=== PATIENT | male | born 2000 | race Caucasian/White ===

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

== ENCOUNTER 2024-02-20 04:12 | Emergency (ER) | payer OTHER, SELFPAY ==
--- NOTE | ~2024-02-20 | CT_ITS ---
EXAMINATION: CT abdomen pelvis w con DATE: 02/20/2024 12:39 INDICATION: Periumbilical abdominal pain TECHNIQUE: Computed tomography (CT) of the abdomen and pelvis was performed with 100 mL Omnipaque-350 intravenous contrast. Automated exposure control and iterative reconstruction technique were employe d. The dose-length product was 304.52 mGy-cm. COMPARISON: 09/22/2019 FINDINGS: Lung bases are clear. Heart size is normal. No pericardial or pleural effusion. Liver, gallbladder, s pleen, pancreas, bilateral adrenal glands and kidneys are normal. Bowels are unremarkable. Bladder is normal. Anteverted uterus and bilateral adnexa are unremarkable. No free intraperitoneal gas or flui d. No pathologically enlarged abdominal or pelvic lymphadenopathy. Mild lumbar spondylosis. IMPRESSION: 1. No acute intra-abdominal/pelvic process. Reviewed, dictated and finalized at location A. [facility] [employer]
--- NOTE | 2024-02-20 10:28 | PC.NURSE ---
pt made aware that we need a urine specimen. pt unable to provide one at this time. pt declining straight cath. call light within reach and pt to advice to press call light when she feels she can use the restroom.
[2024-02-20 10:29] VITALS: BP 106/74; PULSE 80; RESP 16; TEMP 36.6; O2SAT 100
[2024-02-20 10:29] LABS: Basophils Absolute Auto 0.1 K/mm3 (0.0-0.1); Basophils Percent Auto 1.2 % (0.2-1.2); Eosinophils Absolute Auto 0.3 K/mm3 (0-0.3); Eosinophils Percent Auto 3.3 % (0-4.4); Hematocrit 42.2 % (37.0-47.0); Hemoglobin 14.2 g/dL (12.0-15.0); Immature Granulocyte Absolute 0.04 K/mm3 (0.00-0.031); Immature Granulocyte Percent A 0.4 % (0-0.5); Lymphocytes Absolute Auto 2.32 K/mm3 (0.9-3.2); Lymphocytes Percent Auto 22.7 % (18.3-44.2); Mean Corpuscular HGB Conc 33.6 g/dl (32-36); Mean Platelet Volume 9.4 fl (7.4-10.4); Monocytes Absolute Auto 0.5 K/mm3 (0.1-0.6); Monocytes Percent Auto 5.1 % (2.6-8.5); Neutrophils Absolute Auto 6.9 K/mm3 (1.3-6.7); Neutrophils Percent Auto 67.3 % (45.5-73.1); Platelet Count Result 364 k/mm3 (150-375); Red Blood Count 4.44 M/mm3 (4.2-5.4); Red Cell Distribution Width 11.6 % (11.5-14.5); White Blood Count 10.2 K/mm3 (4.5-10.0)
[2024-02-20 10:39] LABS: Alanine Aminotransferase 14 U/L (6-35); Albumin Level 4.6 g/dL (3.5-5.1); Alkaline Phosphatase 57 U/L (38-126); Anion Gap 5 mmol/L (4-12); Aspartate Amino Transferase 21 U/L (14-36); Bilirubin,Total 0.5 mg/dL (0.2-1.3); Blood Urea Nitrogen 11 mg/dL (7-17); Calcium 9.7 mg/dL (8.4-10.2); Carbon Dioxide 29 mmol/L (22-30); Chloride 103 mmol/L (98-107); Estimated Glomerular Filt Rate > 60; Glucose 86 mg/dL (65-110); Lipase 45 U/L (23-300); Potassium 4.3 mmol/L (3.4-5.0); Sodium 137 mmol/L (137-145)
--- NOTE | 2024-02-20 10:57 | ED.ABDPAIN ---
HPI - Abdominal Pain General Chief Complaint: Abdominal Pain Stated Complaint: abd pain Time Seen by Provider: 02/20/24 10:17 Source: patient Mode of arrival: ambulatory Limitations: no limitations History of Present Illness HPI narrative: This is a 23 year old female that presents to the ER for mid abdominal pain. Ongoing since earlier this morning. Denies fevers, vomiting, diarrhea. dysuria. Related Data Home Medications ?Medication ?Instructions ?Recorded ?Confirmed ?Last Taken ?Type albuterol sulfate 90 mcg/actuation 1 puff inhalation QID 09/22/19 Unknown History aerosol inhaler clonidine HCl 0.1 mg tablet 0.1 mg PO ONCE 09/22/19 Unknown History divalproex 500 mg tablet,extended 1,000 mg PO DAILY 09/22/19 Unknown History release 24 hr (Depakote ER) etonogestrel 68 mg subdermal subdermal 09/22/19 Unknown History implant (Nexplanon) fluoxetine 20 mg capsule (Prozac) 20 mg PO DAILY 09/22/19 Unknown History hydroxyzine pamoate 25 mg capsule 25 mg PO TID PRN Anxiety 09/22/19 Unknown History levocetirizine 5 mg tablet (Xyzal) 5 mg PO DAILY 09/22/19 Unknown History omeprazole 20 mg tablet,delayed PO BID 09/22/19 Unknown History release propranolol 40 mg tablet 40 mg PO DAILY 09/22/19 Unknown History testosterone cypionate 200 mg/mL IM WEEKLY 09/22/19 Unknown History intramuscular kit (Testone CIK) trazodone 50 mg tablet 50 mg PO HS 09/22/19 Unknown History Allergies Allergy/AdvReac Type Severity Reaction Status Date / Time cefdinir (From Omnicef) Allergy Rash Verified 09/22/19 13:13 clindamycin Allergy Anaphylactic Verified 09/22/19 13:13 Shock nickel Allergy Rash Verified 09/22/19 13:13 Review of Systems Review of Systems: CONSTITUTIONAL: Denies fever GASTROINTESTINAL: Reports abdominal pain. Denies nausea, vomiting, or diarrhea. GENITOURINARY: Denies dysuria or hematuria. All systems reviewed & are unremarkable except as noted in HPI and below PMFSH Past Medical History Medical History (Updated 02/20/24 @ 13:52 by Mitzy Lozano PA-C) History of fibromyalgia Social History Social History (Updated 09/22/19 @ 15:32 by Julius Mendez, BRADY) Smoking status: Never smoker Exam Narrative: GENERAL: Well-appearing, well-nourished, and in no acute distress. HEAD: Normocephalic, atraumatic. EYES: EOMI. CHEST: Clear to auscultation. No respiratory distress. No wheezes rales or rhonchi HEART: Regular rate and rhythm. No murmur heard. Normal peripheral pulses. ABDOMEN: Soft, nondistended, normal active bowel sounds. Tender to palpation throughout the abdomen, without guarding EXTREMITIES: Normal range of motion. No edema. SKIN: Warm, dry, no rash. NEURO: No focal deficits. Alert and oriented x3. PSYCH: Normal mood and affect Course Course Emergency Course: Patient family updated on workup and agree with plan of care. Reports this has been an ongoing issue with her having abdominal pain. Will refer to GI Vital Signs Vital signs: Vital Signs Temperature 98 F 02/20/24 10:29 Pulse Rate 80 02/20/24 10:29 Respiratory Rate 16 02/20/24 10:29 Blood Pressure 106/74 02/20/24 10:29 Pulse Oximetry 100 02/20/24 10:29 Temperature 97.6 F 02/20/24 13:12 Pulse Rate 80 02/20/24 13:12 Respiratory Rate 17 02/20/24 13:12 Blood Pressure 115/75 02/20/24 13:12 Pulse Oximetry 99 02/20/24 13:12 MDM - Abdominal Pain MDM Narrative Medical decision making narrative: Patient presents to the emergency department for abdominal pain ongoing this morning. She is afebrile and nontoxic appearing. Vitals are stable. CBC with mild leukocytosis to 10.2. Hemoglobin is normal. Metabolic panel without concerning findings. Urine without evidence of infection. CT abdomen pelvis without acute findings. Patient family updated on workup and agree with plan of care. Reports this has been an ongoing issue with her having abdominal pain. Will refer to GI. They were given warnings to return to the ER Differential Diagnosis Differential diagnosis: Likely abdominal pain, acute appendicitis, calculus of kidney, constipation, diverticulitis and endometriosis Lab Data Attestation: I reviewed the patient's lab results. 02/20/24 10:23 02/20/24 10:23 Labs: Lab Results 12/10/24 12/10/24 12/10/24 Range/Units 10:23 12:20 12:21 WBC 10.2 H (4.5-10.0) K/mm3 RBC 4.44 (4.2-5.4) M/mm3 Hgb 14.2 (12.0-15.0) g/dL Hct 42.2 (37.0-47.0) % MCV 95.0 (80-100) fl MCH 32.0 (26-34) pg MCHC 33.6 (32-36) g/dl RDW 11.6 (11.5-14.5) % Plt Count 364 (150-375) k/mm3 MPV 9.4 (7.4-10.4) fl Immature Gran % (Auto) 0.4 (0-0.5) % Neut % (Auto) 67.3 (45.5-73.1) % Lymph % (Auto) 22.7 (18.3-44.2) % [place] % (Auto) 5.1 (2.6-8.5) % Eos % (Auto) 3.3 (0-4.4) % Baso % (Auto) 1.2 (0.2-1.2) % Lymph # (Auto) 2.32 (0.9-3.2) K/mm3 [place] # (Auto) 0.5 (0.1-0.6) K/mm3 Eos # (Auto) 0.3 (0-0.3) K/mm3 Baso # (Auto) 0.1 (0.0-0.1) K/mm3 Abs Immat Gran (auto) 0.04 H (0.00-0.031) K/mm3 Absolute Neuts (auto) 6.9 H (1.3-6.7) K/mm3 Absolute Nucleated RBC 0.000 (0.0-0.012) K/mm3 Nucleated RBC % 0.0 (0.0-0.2) % Sodium 137 (137-145) mmol/L Potassium 4.3 (3.4-5.0) mmol/L Chloride 103 (98-107) mmol/L Carbon Dioxide 29 (22-30) mmol/L Anion Gap 5 (4-12) mmol/L BUN 11 (7-17) mg/dL Creatinine 0.60 L (0.7-1.0) mg/dL Estim Creat Clear Calc Not Reportable Estimated GFR > 60 (59 - ) Glucose 86 (65-110) mg/dL Calcium 9.7 (8.4-10.2) mg/dL Total Bilirubin 0.5 (0.2-1.3) mg/dL AST 21 (14-36) U/L ALT 14 (6-35) U/L Alkaline Phosphatase 57 (38-126) U/L Total Protein 8.0 (6.3-8.2) g/dL Albumin 4.6 (3.5-5.1) g/dL Lipase 45 (23-300) U/L Urine Color Yellow (Yellow) Urine Appearance Clear (Clear) Urine pH 7.0 (5.0-9.0) Ur Specific [place] 1.018 (1.001-1.035) Urine Protein Negative (Negative) mg/dL Urine Glucose (UA) Negative (Negative) mg/dL Urine Ketones Trace H (Negative) mg/dL Ur Blood (Man) Negative (Negative) Urine Nitrate Negative (Negative) Urine Bilirubin Negative (Negative) Urine Urobilinogen 0.2 (<2.0) mg/dL Leukocyte Esterase Rfl Negative (Negative) LUI/UL POC Urine HCG, Qual Negative (Negative) Imaging Data Radiologist's impression: ITS Impressions Abdomen/Pelvis CT 02/20/24 12:49 IMPRESSION: 1. No acute intra-abdominal/pelvic process. Critical Care Time Critical Care Time Critical Care Time: No Discharge Plan Discharge Clinical Impression: Abdominal pain Qualifiers: Abdominal location: periumbilical Qualified Code(s): R10.33 - Periumbilical pain Patient Disposition: Home, Self-Care Condition: Stable Instructions: Abdominal Pain (ED) Additional Instructions: Return to the ER if you experience fever, worsening abdominal pain with nausea and vomiting, you are unable to keep down liquids or solids, blood in the stool, pain or burning with urination, blood in the urine or any other symptoms that are concerning to you Small, frequent meals. [place] diet. Remain well hydrated. Ondansetron as needed for nausea Follow up with gastroenterology Patient Language: Nepali Prescriptions: New ondansetron 4 mg tablet,disintegrating 4 mg PO Q8H PRN (Reason: nausea and vomiting) Qty: 10 0RF No Action divalproex [Depakote ER] 500 mg Tablet Extended Release 24 Hr 1,000 mg PO DAILY clonidine HCl 0.1 mg Tablet 0.1 mg PO ONCE fluoxetine [Prozac] 20 mg Capsule 20 mg PO DAILY levocetirizine [Xyzal] 5 mg Tablet 5 mg PO DAILY omeprazole 20 mg Tablet,Delayed Release (Dr/Ec) PO BID trazodone 50 mg Tablet 50 mg PO HS propranolol 40 mg Tablet 40 mg PO DAILY albuterol sulfate 90 mcg/actuation Hfa Aerosol Inhaler 1 puff INHALATION QID hydroxyzine pamoate 25 mg Capsule 25 mg PO TID PRN (Reason: Anxiety) Nexplanon 68 mg Implant SUBDERMAL Testone CIK 200 mg/mL Kit IM WEEKLY cyclobenzaprine 10 mg tablet 10 mg PO TID PRN (Reason: muscle spasm) Qty: 7 0RF Follow-up/Referrals: [place],Aniya Carreno APN [Primary Care Provider] -
[2024-02-20] MEDS: SODIUM CHLORIDE 0.9% IV 1,000 ML 999 ML IV CONT ×2 (11:02→12:59)
[2024-02-20] MEDS: ONDANSETRON INJ 4 MG/2 ML VIAL IV PUSH (11:03)
[2024-02-20] MEDS: MORPHINE SULFATE (*CRX) 4 MG/ML INJ IV PUSH (11:03)
[2024-02-20 11:07] VITALS: BP 107/78; PULSE 82; RESP 14; TEMP 36.9; O2SAT 100
[2024-02-20 12:26] LABS: BEDSIDEPREGUCG Negative (Negative)
[2024-02-20 12:26] LABS: Add Urine Microscopic? NO; Appearance Urine Clear (Clear); Bilirubin Urine Negative (Negative); Blood Urine Negative (Negative); Color Urine Yellow (Yellow); Glucose Urine UA Negative (Negative); Ketones Urine Trace mg/dL (Negative); Leukocyte Esterase Ur Negative LEU/UL (Negative); Nitrate Urine Negative (Negative); Protein Urine Negative (Negative); Specific Grav Ur 1.018 (1.001-1.035); Urobilinogen Urine 0.2 mg/dL (<2.0)
[2024-02-20 13:12] VITALS: BP 115/75; PULSE 80; RESP 17; TEMP 36.4; O2SAT 99
== END 2024-02-20 13:58 | disposition home or self-care (01) ==
PROVIDERS: Emergency Medicine; Emergency Provider Physician Assistant; PCP Nurse Practitioner Family
DX: R10.33 Periumbilical pain (principal)
CPT/HCPCS: 36415; 74177; 80053; 81003; 81025; 83690; 85025; 96361; 96374; 96375; 99284; J2270; J2405; J7030; Q9967

== ENCOUNTER 2024-08-16 16:43 | Emergency (ER) | payer OTHER, SELFPAY ==
--- NOTE | ~2024-08-16 | XR_ITS ---
EXAMINATION: XR chest 1V portable Exam Date/Time: 08/16/2024 20:53 CDT HISTORY: reported fever Comparison: CT cap 09/22/2019. RESULT: Lines, tubes, and devices: None. Lungs and pleura: Clear. Cardiomediastinal silhouette: Stable. Other: No acute osseous or upper abdominal finding. IMPRESSION: No acute cardiopulmonary process. Reviewed, dictated and finalized at location K.
--- NOTE | ~2024-08-16 | CT_ITS ---
EXAMINATION: CT abdomen pelvis w con DATE: 08/16/2024 19:36 INDICATION: LUQ and LLQ abdominal pain TECHNIQUE: Computed tomography (CT) of the abdomen and pelvis was performed with 100 mL Omnipaque-350 intravenous contrast. Automated exposure control and iterative reconstruction technique were employe d. The dose-length product was 556.01 mGy-cm. COMPARISON: 02/20/2024. FINDINGS: Lower thorax: Unremarkable Liver: Normal. Biliary/Gallbladder: Gallbladder is normal. No bile duct dilation. Pancreas: No mass or duct dilation. Spleen: Normal. Adrenals:No mass. Kidneys: No suspicious mass, obstructing stone, or hydronephrosis. GI tract: Mild distal esophageal and gastric wall edema. No small or large bowel dilation. Normal eron endix. Mesentery/Peritoneum: No ascites, mass, or free air. Retroperitoneum: No mass. Pelvis: Nearly empty urinary bladder. Normal uterus and bilateral ovaries. Soft Tissues: Soft tissues and body wall unremarkable. Bones: No acute osseous finding. IMPRESSION: Mild esophagitis and gastritis. Reviewed, dictated and finalized at location K.
--- OUTSIDE RECORDS SUMMARY | 2024-08-16 16:46 | XMS_ITS | Encounter Summary ---
Author Organization Formerly [facility] Address [address] [place] [address] Care Team Providers Care Cloth Bale Header Name Role Phone MadisonAniya Kim VILLAVICENCIO Primary Care Provider [phone] Reason for Visit * Reason Comments PT Treatment * Consultation (Routine) - Authorized Specialty Diagnoses / Procedures Referred By Galo sandy Referred To Contact Physical Therapy Diagnoses Dysmenorrhea, unspecified Kassie Camarena MD [address] [place] [id number] Phone: tel: fax: [facility] [place] [address] Phone: tel: fax: Referral ID Status Reason Start Date Expiration Date Visits Requested Visits Authorized [id number] Authorized Evaluate and Treat 06/10/2024 06/10/2025 6 11 Encounter Details Date Type Department Care Team (Late st Contact Info) Description 08/15/2024 11:15 AM CDT Therapy [facility] [place] [address] Carole Hughes, PT Pelvic and perineal pain (Primary Dx); Dysmenorrhea, unspecified Social History Tobacco Use Types Packs/Day Years Used Date Smoking Tobacco: Former Cigarettes Comments Unknown Sex and Gender Information Value Date Recorded Sex Assigned at Not on file Legal Sex Female 12:50 PM CDT Gender Identity Non-Binary 04/27/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 Pelvic and perineal pain R10.2 2. 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 They have been learning how to give massages with their wheelchair to allow them to maintain energy conservation. They feel very nauseous right now. They have not been able to eat much food in the past few weeks due to food aversions. Their pain is getting a little better and fatigue is a bit better, but the nausea is not letting up. Pelvic pain is better, and they are starting to see progress with dilation. There is still initial searing pain, but but the deeper areas areless painful. Pelvic pain is currently 5/10, whole body is 6/10. Objective: See treatment provided Pt provided verbal consent to pelvic floor assessment 07/25/24. At rest, they demonstrate perineal elevation at rest with minimal range of motion with contraction and lengthening. Reports pain with lengthening. Internally, they have increased pain and tension throughout L side of pelvic floor, and increased tension but less report of pain on R. Second layer continues to be tense and painful. With changing LE position to main-cross legs, pelvic floor tension and pain level becomes significantly less tense and tender. Symptoms still more prominent L>R, but able to palpate deep pelvic floor without significant pain levels. Able to perform kenya's massage without pain >1/10. Abdominal fascia: increased restrictions noted suprapubic, LLQ, and RLQ Function Breathing: good rib expansion Treatment Provided: Education re: pelvic floor anatomy and function Education re: pelvic floor assessment & what to expect Education re: core and effect on pelvic floor Education re: intraabdominal pressure management Education re: urge suppression techniques - h/o provided 06/19/24 Education re: toileting postures & habits - squatty potty; open glottis breathing Education re: bladder retraining - bladder log provided 06/19/24 pt in supine with wedge to address nausea Reviewed urge suppression techniques & bladder log Pelvic floor MFR - sustained pressure and kenya's massage when in main cross position Abdominal MFR - tender to palpation at suprapubic, LLQ, RLQ that refers to navel, suprapubic* Discussed wand & dilator use Vagal nerve stimulation (ears, SCM) IFC & MHP during treatment Diaphragm breathing* Keila pose* Happy baby* Deep yoga squat* HEP: Access Code: [email or web address] - Child's Pose Stretch - 1 x daily - 7 x weekly - Supine Pelvic Floor Stretch - Hands on Knees - 1 x daily - 7 x weekly - Supine Piriformis Stretch with Leg Straight - 1 x daily - 7 x weekly - Yoga Squat for Pelvic Floor Relaxation - 1 x daily - 7 x weekly Bowel management handout Assessment: Added IFC & MHP to abdomen for comfort and pain management while performing manual techniques today. Tension of pelvic floor L>R with report of tenderness but improvements with Kenya's massage and sustained pressure. Goals STG 1:: Pt will utilize urge suppression techniques to manage urinary urgency and incontinence. goal progressing LTG 1:: Pt will report Marinoff score 0/3. goal not assessed LTG 2:: Pt will have daily bowel movement, type 3-4, with pain no greater than 2/10. goal progressing LTG 3:: Pt will void every 2-4 hours without urgency and completely emptying without pushing to empty. goal progressing LTG 4:: Pt will report worst pelvic pain 4/10 during menstruation. goal unchanged LTG 5:: Pt will tolerate medical pelvic examination with pain level 2/10 or less. goal progressing Plan: Continue with current POC Time in: 1115 Time out: 1200 Carole Hughes PT, DPT, COMT documented in this encounter Plan of Treatment Not on file documented as of this encounter Visit Diagnoses Diagnosis Pelvic and perineal pain- Primary Dysmenorrhea, unspecified documented in this encounter Care Teams Cloth Bale Header Relationship Specialty Start Date End Date Madison, Aniya Alvarez NP [address] [place] [address] PCP - General Nurse Practitioner 09/27/21 documented as of this encounter
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
--- OUTSIDE RECORDS SUMMARY | 2024-08-16 16:46 | XMS_ITS | Encounter Summary ---
Author Organization [facility] Healthcare Address [address] [place] [address] Care Team Providers Care Supervisor Epoxy Fabrication Name Role Phone Aniya Wallace NP Primary Care Provider Reason for Visit * Reason Comments Muscle Pain Patient here for c/o flare up of pain for the last few weeks, has had dizziness and nausea that started at the same time. Has not been able to keep meals down since this started. Encounter Details Date Type Department Care Team (Late st Contact Info) Description 08/16/2024 4:00 PM CDT Office Visit [facility] Medical Group Convenient Care at [address] [address] Tyrel Jarquin NP [address] [place] [address] [address] [place] [address] Abdominal pain (Primary Dx); Nausea; Left upper quadrant abdominal tenderness without rebound tenderness; Left lower quadrant abdominal tenderness without rebound tenderness Social History Tobacco Use Types Packs/Day Years Used Date Smoking Tobacco: Former Cigarettes Comments Unknown Sex and Gender Information Value Date Recorded Sex Assigned at Not on file Legal Sex Female 12:50 PM CDT Gender Identity Non-Binary 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 Sexual Orientation Bisexual 04/27/2022 7: 54 AM TRACK MOVING MACHINE OPERATOR documented as of this encounter Last Filed Vital Signs Vital Sign Reading Time Taken Comments Blood Pressure 133/84 08/16/2024 3:23 PM CDT Pulse 99 08/16/2024 3:23 PM CDT Temperature 36.9 C (98.4 F) 08/16/2024 3:23 PM CDT Respiratory Rate 21 08/16/2024 3:23 PM CDT Oxygen Saturation 97% 08/16/2024 3:23 PM CDT Inhaled Oxygen Concentration - - Weight - - Height - - Body Mass Index - - documented in this encounter Ordered Prescriptions Prescription Sig Dispense Quantity Refills Last Filled Start Date End Date ondansetron ODT (ZOFRAN-ODT) 4 mg disintegrating tabletIndications:Na usea Take 1 tablet (4 mg total) by mouth every 8 (eight) hours as needed for nausea or vomiting 10 tablet 08/16/2024 documented in this encounter Plan of Treatment Not on file documented as of this encounter Visit Diagnoses Diagnosis Abdominal pain- Primary Abdominal pain, unspecified site Nausea Nausea alone Left upper quadrant abdominal tenderness without rebound tenderness Left lower quadrant abdominal tenderness without rebound tenderness documented in this encounter Discontinued Medications Medication Sig Discontinue Reason Start Date End Da te naproxen-diphenhydramine 220-25 mg tablet Take by mouth 08/16/2024 documented as of this encounter Historical Medications * This list may reflect changes made after this encounter. Strattera 40 mg capsule TAKE 1 CAPSULE EVERY DAY BY ORAL ROUTE DIRECTED FOR 30 DAYS, FOR ADHD. Slynd tablet tablet Take 1 each (4 mg total) by mouth daily 08/01/2024 hydrOXYzine (ATARAX) 10 mg tablet Take 1 tablet (10 mg total) by mouth every 6 (six) hours as needed mirtazapine (REMERON) 7.5 mg tablet TAKE ONE TABLET BY MOUTH NEEDED AT BEDTIME FOR SLEEP DISTURBANCE sodium chloride 1,000 mg tablet Take 1 tablet (1 g total) by mouth 2 (two) times a day 06/27/2024 propranolol LA (INDERAL LA) 120 mg 24 hr capsule Take by mouth daily midodrine (PROAMATINE) 2.5 mg tablet 08/16/2024 added in this encounter Care Teams Supervisor Epoxy Fabrication Relationship Specialty Start Date End Date Aniya Wallace NP [address] [place] [address] PCP - General Nurse Practitioner 09/27/21 documented as of this encounter
--- OUTSIDE RECORDS SUMMARY | 2024-08-16 16:46 | XMS_ITS | Encounter Summary ---
Author Organization [facility] [employer] [facility] Care Team Providers Care Marketing Support Specialist Name Role Phone Aniya Wallace APRNMADDIE Primary Care Provider [phone] Encounter Details Date Type Department Care Team (Latest Contact Info) Description 08/15/2024 Travel Social History Tobacco Use Types Packs/Day Years Used Date Smoking Tobacco: Never Smokeless Tobacco: Never Alcohol Use Standard Drinks/Week Comments Not Currently [...] PM CDT documented as of this encounter Plan of Treatment Upcoming Encounters Date Type Department Care Team (Latest Contact Info) Description 10/02/2024 8:00 AM CDT Outpatient Clinic Visit [facility] [address] [place] [address] Juancho Rodriguez PSYD [place] Discharge Disposition: Discharged to home or Selfcare 10/23/2024 9:00 AM CDT Outpatient Clinic Visit [facility] [address] [place] [address] Juancho Rodriguez PSYD [place] Discharge Disposition: Discharged to home or Selfcare documented as of this encounter Goals Goal Patient Goal Type Associated Problems Recent Progress Patient-Stated? Author Psychological assessment Behavioral Health Juancho Green PSYD Note: Participate fully in a psychological assessment to determine presence of ADHD within the next 60 days. documented as of this encounter Visit Diagnoses Not on filedocumented in this encounter Care Teams Marketing Support Specialist Relationship Specialty Start Date End Date Aniya Wallace APRN, MADDIE [address] [place] [address] PCP - General Family Medicine 08/15/24 documented as of this encounter
--- OUTSIDE RECORDS SUMMARY | 2024-08-16 16:46 | XMS_ITS | Clinical Summary ---
Author Organization [facility] Address [facility] [place] [address] Care Team Providers Care Vest Busheler Name Role Phone Aniya Wallace PYTHON DEVELOPER Primary Care Provider [phone] Allergies Active Allergy Reactions Criticality Noted Date Comments Adhesive Rash,Other (See comments) Medium 11/09/2021 adhesive Cefdinir Other (See comments),Vomiting Low 11/24/2021 Severe acid reflux Clindamycin Unknown,Other (See comments) 11/09/2021 clindamycin Doxycycline Other (See comments) 08/16/2024 doxycycline Nickel Hives Medium 11/09/2021 Nystatin Rash,Other (See comments) Medium 11/09/2021 nystatin Medications acetaminophen-asp irin-caffeine (EXCEDRIN MIGRAINE) 250-250-65 mg per tablet Take 1 tablet by mouth every 6 (six) hours as needed Active cranberry ydmc-B-fpdefaky coag 250-30-50 vs-je-pfurhbz tablet Take by mouth Active magnesium carbonate (MAGONATE) liquid (54 mg of elemental magnesium/5 mL) Acti ve cholecalciferol (Vitamin D3) 2000 unit capsule Active ELDERBERRY FRUIT ORAL Active thymol/chlorophyl primo (CHLOROPHYLL ORAL) Active L. acidophilus/dig enz cmb 5 (PROBIOTIC-DIGEST RUBENS ENZYMES ORAL) Ac tive albuterol HFA (PROVENTIL HFA,VENTOLIN HFA,PROAIR HFA) 90 mcg/actuation inhaler INHALE 2 PUFFS BY MOUTH EVERY 6 HOURS 023 Active midodrine (PROAMATINE) 2.5 mg tablet 025 Active propranolol LA (INDERAL LA) 120 mg 24 hr capsule Take by mouth daily Active sodium chloride 1,000 mg tablet Take 1 tablet (1 g total) by mouth 2 (two) times a day 025 Active mirtazapine (REMERON) 7.5 mg tablet TAKE ONE TABLET BY MOUTH NEEDED AT BEDTIME FOR SLEEP DISTURBANCE Active hydrOXYzine (ATARAX) 10 mg tablet Take 1 tablet (10 mg total) by mouth every 6 (six) hours as needed Active Slynd tablet tablet Take 1 each (4 mg total) by mouth daily Active Strattera 40 mg capsule TAKE 1 CAPSULE EVERY DAY BY ORAL ROUTE DIRECTED FOR 30 DAYS, FOR ADHD. 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 Medical Group Convenient Care at [address] [address] Tyrel Jarquin NP Abdominal pain (Primary Dx); Nausea; Left upper quadrant abdominal tenderness without rebound tenderness; Left lower quadrant abdominal tenderness without rebound tenderness 08/15/2024 11:15 AM CDT Therapy [facility] [place] [address] Carole Hughes, PT Pelvic and perineal pain (Primary Dx); Dysmenorrhea, unspecified 08/01/2024 10:30 AM CDT Therapy [facility] Physical [facility] [place] [address] Lyric Hughesin, PT Pelvic and perineal pain (Primary Dx); Dysmenorrhea, unspecified 07/25/2024 10:15 AM CDT Therapy [facility] [place] [address] Lyric Hughesin, PT Dysmenorrhea, unspecified (Primary Dx); Pelvic and perineal pain 06/19/2024 10:15 AM CDT Therapy [facility] [place] [address] Lyric Hughesin, PT Dysmenorrhea, unspecified (Primary Dx); Pelvic and perineal pain 06/10/2024 11:00 AM CD[facility] [place] [address] Lyric Hughesin, PT Pelvic and perineal pain (Primary Dx); Dysmenorrhea, unspecified 06/10/2024 Plan of Care Documentation [facility] [place] [address] 05/30/2024 Telephone [facility]stetrics and Gynecology Clinic [address] [place] [address] Health 3rd Floor [address] [place] [address] Sonia Ham from Last 3 Months Immunizations Immunization Administration Dates Next Due Influenza, Quadrivalent, Split, Intramuscular Influenza, Trivalent, IM (MDV) 03/11/2024 Sars-cov-2 Covid-19 Mrna, Bi valent, Original/angela Ba.1 05/23/2024,02/15/2023 Tdap 05/23/2024 Surgical History Surgery Date Site/Laterality Comments WISDOM TOOTH EXTRACTION Medical History Medical History Date Comments Headache, tension-type Hypertension Migraine Drug abuse (HCC) Psychiatric diagnosis Seizures (HCC) POTS (postural orthostatic tachycardia syndrome) Fibromyalgia Family History Medical History Relation Name Comments Hypertension Father Migraines Father Seizures Father Stroke Father Dementia Maternal Grandmother Diabetes Maternal Grandmother Migraines Mother Relation Name Status Comments Father Maternal Grandmother Mother Social History Tobacco Use Types Packs/Day Years Used Date Smoking Tobacco: Former Cigarettes Tobacco Cessation:Counseling Given: Not Answered Comments Unknown Sex and Gender Information Value Date Recorded Sex Assigned at Not on file Legal Sex Female 12:50 PM CDT Gender Identity Non-Binary 04/27/2022 7:54 AM 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 Sexual Orientation Bisexual 04/27/2022 7: 54 AM 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 Obstetrics History Last Filed Vital Signs Vital Sign Reading Time Taken Comments Blood Pressure 133/84 08/16/2024 3:23 PM CDT Pulse 99 08/16/2024 3:23 PM CDT Temperature 36.9 C (98.4 F) 08/16/2024 3:23 PM CDT Respiratory Rate 21 08/16/2024 3:23 PM CDT Oxygen Saturation 97% 08/16/2024 3:23 PM CDT Inhaled Oxygen Concentration - - Weight 55.8 kg (123 lb) 04/27/2022 2:20 PM 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 Height 162.6 cm (5' 4) 04/27/2022 2:20 PM 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 Body Mass Index 21.11 04/27/2022 2:20 PM 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 Plan of Treatment Health Maintenance Due Date Last Done Comments Cervical Cancer Screening 2002 Depression Screening 2002 Hepatitis C Screening 2002 Varicella Vaccines (1 of 2 - 13+ 2-dose series) 11/20/2015 HPV Vaccines (1 - 3-dose series) 2017 Meningococcal B Vaccine (1 of 2 - Standard) 2018 Hepatitis B Screening 2020 Regular Well Visit/Exam 18-64 2020 Covid-19 Vaccine ( season) 2024 05/23/2024, 02/15/2023, 03/03/2021, Additional history exists DTaP/Tdap/Td Vaccine (2 - Td or Tdap) 05/23/2034 05/23/2024 Influenza Vaccine Completed 03/11/2024, 02/15/2023 Meningococcal Vaccine Aged Out No simone cholo eligible based on patient's age to complete this topic Pneumococcal vaccine <65 Aged Out No longer eligible based on patient's age to complete this topic Insurance [facility] Care Teams Vest Busheler Relationship Specialty Start Date End Date Wallace, Aniya Alvarez NP [address] [place] [address] PCP - General Nurse Practitioner 09/27/21"
--- OUTSIDE RECORDS SUMMARY | 2024-08-16 16:46 | XMS_ITS | Referral Summary ---
Author Organization [facility] Address [address] [place] [address] Care Team Providers Care Foreign Food Specialty Cook Name Role Phone MadisonJohnathonAniyaterrie Alvarez NP Primary Care Provider [phone] Encounters Date Type Department Care Team Description 08/16/2024 4:00 PM CDT Office Visit [facility] Medical Group [facility] Care at [address] [address] Tyrel Jarquin NP Abdominal pain (Primary Dx); Nausea; Left upper quadrant abdominal tenderness without rebound tenderness; Left lower quadrant abdominal tenderness without rebound tenderness 08/15/2024 11:15 AM CDT Therapy [facility] Physical [place] [address] [address] Carole Hughes, PT Pelvic and perineal pain (Primary Dx); Dysmenorrhea, unspecified 08/01/2024 10:30 AM CDT Therapy [facility] [place] [address] Carole Hughes, PT Pelvic and perineal pain (Primary Dx); Dysmenorrhea, unspecified 07/25/2024 10:15 AM CDT Therapy [facility] [place] [address] [address] Carole Hughes, PT Dysmenorrhea, unspecified (Primary Dx); Pelvic and perineal pain 06/19/2024 10:15 AM CDT Therapy [facility] [place] [address] [address] Carole Hughes, PT Dysmenorrhea, unspecified (Primary Dx); Pelvic and perineal pain 06/10/2024 Plan of Care Documentation [facility] [place] [address] 06/10/2024 11:00 AM CDT Therapy [facility] [place] [address] Carole Hughes, PT Pelvic and perineal pain (Primary Dx); Dysmenorrhea, unspecified 05/30/2024 Telephone Obstetrics and Gynecology Clinic [facility] Health 3rd Floor [address] [place] [address] Sonia Ham from Last 3 Months Allergies Active Allergy Reactions Criticality Noted Date [...] 6 (six) hours as needed Active cranberry xyut-P-eulqlbsh coag 250-30-50 xx-dn-ohdndgb tablet Take by mouth Active magnesium carbonate [...] 023 Active midodrine (PROAMATINE) 2.5 mg tablet 06/06/2 025 Active propranolol LA (INDERAL LA) 120 mg 24 hr capsule Take by mouth daily Active sodium chloride 1,000 mg tablet Take 1 tablet (1 g total) by mouth 2 (two) times a day Active mirtazapine (REMERON) 7.5 mg tablet TAKE [...] disorder 10/12/2021 Acne 07/12/2021 Mood disorder 07/12/2021 Immunizations Immunization Administration Dates Next Due Influenza, Quadrivalent, Split, Intramuscular Influenza, Trivalent, IM (MDV) 03/11/2024 Sars-cov-2 Covid-19 Mrna, Bi valent, Original/angela Ba.1 05/23/2024,02/15/2023 Tdap 05/23/2024 Social History Tobacco Use Types Packs/Day Years Used Date Smoking Tobacco: Former Cigarettes Tobacco Cessation:Counseling Given: Not Answered Comments Unknown Sex and Gender Information Value Date Recorded Sex Assigned at Not on file Legal Sex Female 12:50 PM CDT Gender Identity Non-Binary 04/27/2022 7:54 AM 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 DONOR 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 Sexual Orientation Bisexual 04/27/2022 7: 54 AM SALES DONOR RECRUITMENT 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 Last Filed Vital Signs Vital Sign Reading Time Taken Comments Blood Pressure 133/84 08/16/2024 3:23 PM CDT Pulse 99 08/16/2024 3:23 PM CDT Temperature 36.9 C (98.4 F) 08/16/2024 3:23 PM CDT Respiratory Rate 21 08/16/2024 3:23 PM CDT Oxygen Saturation 97% 08/16/2024 3:23 PM CDT Inhaled Oxygen Concentration - - Weight 55.8 kg (123 lb) 04/27/2022 2:20 PM SALES DONOR RECRUITMENT 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 Height 162.6 cm (5' 4) 04/27/2022 2:20 PM SALES DONOR RECRUITMENT 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 Body Mass Index 21.11 04/27/2022 2:20 PM SALES DONOR RECRUITMENT 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 Plan of Treatment Not on file Insurance [facility] Care Teams Foreign Food Specialty Cook Relationship Specialty Start Date End Date Aniya Wallace NP [address] [place] [address] PCP - General Nurse Practitioner 09/27/21
--- OUTSIDE RECORDS SUMMARY | 2024-08-16 16:46 | XMS_ITS | Clinical Summary ---
Author Organization [facility] Address [address] [place] [address] Care Team Providers Care Hand Cooper Helper Name Role Phone Unavailable Primary Care Provider Unavailabl e Encounters Date Type Department Care Team Description 08/01/2024 External Device Data ST[facility] ABSTRACTION Provider, Abstract 08/01/2024 External Device Data [facility] ABSTRACTION Provider, Abstract 08/01/2024 External Device Data [facility] ABSTRACTION Provider, Abstract 07/31/2024 External Device Data [facility] ABSTRACTION Provider, Abstract 07/30/2024 External Device Data [facility] ABSTRACTION Provider, Abstract 06/25/2024 External Device Data [facility] ABSTRACTION Provider, Abstract 05/29/2024 External Device Data [facility] ABSTRACTION Provider, Abstract 05/29/2024 External Device Data ST[facility] ABSTRACTION Provider, Abstract 05/18/2024 External Device Data ST[facility] ABSTRACTION Provider, Abstract 05/17/2024 External Device Data STL ABSTRACTION Provider, Abstract from Last 3 Months Social History Tobacco Use Types Packs/Day Years Used Date Smoking Tobacco: Never Assessed Adolescent Education Answer Date Record ed Getting School Help Needed Not on file 10/19 Comments Unknown Sex and Gender Information Value Date Recorded Sex Assigned at Not on file Legal Sex Female 11:10 AM CDT Gender Identity Not on file Sexual Orientation Not on file Plan of Treatment Health Maintenance Due Date Last Done Comments CHLAMYDIA SCREENING (ANNUAL) 11-24 YEARS 2013 HPV VACCINES (1 - 3-dose series) 2017 DTAP/TDAP/TD VACCINES (1 - Tdap) 2021 HEPATITIS B VACCINES (1 of 3 - 19+ 3-dose series) 11/2021 INFLUENZA VACCINE (#1) 2023 CERVICAL CANCER SCREENING 11/20/2023 HPV/Cotest (21-29) 11/20/2023 PAP SMEAR 11/20/2023 Insurance [employer]
--- OUTSIDE RECORDS SUMMARY | 2024-08-16 16:46 | XMS_ITS | Clinical Summary ---
Author Organization [facility] Address [address] [place] [address] Phone Care Team Providers Care Parachute Officer Name Role Phone Aniya Wallace APRN, CNP Primary Care Provider [phone] Medications atomoxetine (Strattera) 60 MG Capsule Take 60 mg by mouth daily. Active hydrOXYzine (ATARAX) 10 MG Tablet Take 10 mg by mouth every 6 hours as needed. 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 25 Encounters Date Type Department Care Team Description 08/15/2024 8:00 AM CDT Outpatient Clinic Visit [facility] [address] [place] [address] Juancho Rodriguez PSYD Unspecified neurodevelopmental disorder (Primary Dx); Excoriation (skin-picking) disorder; Obsessive compulsive disorder, with good or fair insight Discharge Disposition: Discharged to home or Selfcare 08/15/2024 Travel from Last 3 Months Family History Relation Name Status Comments Brother Alive Father Alive Mother Alive Social History Tobacco Use Types Packs/Day Years [...] Orientation Bisexual 08/16/2024 1: 14 PM CDT Plan of Treatment Upcoming Encounters Date Type Department Care Team (Latest Contact Info) Description 10/02/2024 8:00 AM CDT [facility] [address] [place] [address] Juancho Rodriguez PSYD [place] Discharge Disposition: Discharged to home or Selfcare 10/23/2024 9:00 AM CDT Outpatient Clinic Visit [facility] [address] [place] [address] Juancho Rodriguez PSYD [place] Discharge Disposition: Discharged to home or Selfcare Health Maintenance Due Date Last Done Comments Hepatitis C Virus (HCV) Screening 2002 Human Papillomavirus (HPV) Immunization (1 - 3-dose series) 2017 Meningococcal B Immunization (1 of 2 - Standard) 2018 Hepatitis B Immunization (1 of 3 - 19+ 3-dose series) 2021 Pap Smear 11/20/2023 Respiratory Syncytial Virus (RSV) Immunization (Adult) (1 - 1-dose 75+ series) 2077 Influenza Immunization Completed 03/11/2024, 2022 SARS-COV-2 Immunization Completed 05/24/19, 02/15/2023, 03/03/2021, Additional history exists TdaP Immunization Completed 05/23/2024 Meningococcal Immunization (ACWY) Aged Out No longer eligible based on patient's age to complete this topic Pneumococcal Immunization Combined Aged Out No longer eligible based on patient's age to complete this topic Rotavirus Immunization Aged Out No lo nger eligible based on patient's age to complete this topic Goals Goal Patient Goal Type Associated Problems Recent Progress Patient-Stated? Author Psychological assessment Behavioral Health No Juancho Rodriguez PSYD Note: Participate fully in a psychological assessment to determine presence of ADHD within the next 60 days. Insurance MEDICAID [employer] Care Teams Parachute Officer Relationship Specialty Start Date End Date Aniya Wallace APRN, CNP [address] [place] [id number] PCP - General Family Medicine 08/15/24
[2024-08-16 16:47] VITALS: BP 112/74; PULSE 72; RESP 18; TEMP 36.8; O2SAT 100
--- NOTE | 2024-08-16 16:56 | ED_ITS ---
HPI - General Adult General Chief complaint: Unspecified <Svitlana Damon APRN - Last Filed: 08/16/24 17:02> Stated complaint: pain, dizziness, hypotension <Svitlana Damon APRN - Last Filed: 08/16/24 17:02> Time Seen by Provider: 08/16/24 16:50 <Svitlana Damon APRN - Last Filed: 08/16/24 17:02> Focused HPI: Patient is a 23-year-old female who reports to the ER with a 1-1/2 week history of decreased p.o. intake, left upper quadrant pain, and low blood pressure. She has a very complex medical history. Patient has a history of low blood pressure and takes midodrine, she sees a fitter/welder for POTS, she endorses a history of fibromyalgia and PCOS, and is being worked up for multiple other conditions. At the time of examination today patient reports her biggest concern is nausea and vomiting but she has also had intermittent fevers. Patient reports she saw her fitter/welder this morning who increased her midodrine. She denies any shortness of breath, chest pain, or numbness/tingling in her extremities. GENERAL: Well-appearing, well-nourished, and in no acute distress. HEAD: Normocephalic, atraumatic. CHEST: Clear to auscultation. ?No respiratory distress. HEART: Regular rate and rhythm.? NEURO: ?Alert and oriented x3. Patient screened in triage and initial orders placed.? ?Additional care and disposition to be based upon?diagnostic testing and treatment. <Svitlana Damon APRN - Last Filed: 08/16/24 17:02> History of Present Illness HPI narrative: 23-year-old female with history of fibromyalgia, pots, reported chronic abdominal pain presents with her mother at bedside for acute on chronic abdominal pain and acute on chronic nausea. Patient states the pain is located the left upper side of her abdomen. States she has been having difficulty eating and drinking due to nausea. Her PCP is off on Fridays and so she became concerned that she would not be able to eat until she was able to get into her PCP on Monday so came to the ED. she is also endorsing intermittent fevers for the past couple of weeks. She reports nasal congestion but is attributing this to allergies. Denies otalgia, sore throat, cough, dysuria or hematuria, flank pain. <Alida Almanza PA-C - Last Filed: 08/16/24 22:28> Related Data Home medications: Home Medications ?Medication ?Instructions ?Recorded ?Confirmed ?Last Taken ?Type albuterol sulfate 90 mcg/actuation 1 puff inhalation QID 09/22/19 Unknown History aerosol inhaler clonidine HCl 0.1 mg tablet 0.1 mg PO ONCE 09/22/19 Unknown History divalproex 500 mg tablet,extended 1,000 mg PO DAILY 09/22/19 Unknown History release 24 hr (Depakote ER) etonogestrel 68 mg subdermal subdermal 09/22/19 Unknown History implant (Nexplanon) fluoxetine 20 mg capsule (Prozac) 20 mg PO DAILY 09/22/19 Unknown History hydroxyzine pamoate 25 mg capsule 25 mg PO TID PRN Anxiety 09/22/19 Unknown History levocetirizine 5 mg tablet (Xyzal) 5 mg PO DAILY 09/22/19 Unknown History omeprazole 20 mg tablet,delayed PO BID 09/22/19 Unknown History release propranolol 40 mg tablet 40 mg PO DAILY 09/22/19 Unknown History testosterone cypionate 200 mg/mL IM WEEKLY 09/22/19 Unknown History intramuscular kit (Testone CIK) trazodone 50 mg tablet 50 mg PO HS 09/22/19 Unknown History <Svitlana Damon, DEBI - Last Filed: 08/16/24 17:02> Allergies/adverse reactions: Allergies Allergy/AdvReac Type Severity Reaction Status Date / Time cefdinir (From Omnicef) Allergy Rash Verified 09/22/19 13:13 clindamycin Allergy Anaphylactic Verified 09/22/19 13:13 Shock nickel Allergy Rash Verified 09/22/19 13:13 <Svitlana Damon, DEBI - Last Filed: 08/16/24 17:02> Review of Systems 2 Review of Systems: All systems reviewed & are unremarkable except as noted in HPI and below <Alida Almanza PA-C - Last Filed: 08/16/24 22:28> PMFSH Past Medical History Medical History: Medical History History of fibromyalgia <Svitlana Damon, PUMP HOUSE OPERATOR - Last Filed: 08/16/24 17:02> Social History Social History: Social History Smoking status: Never smoker <Svitlana Damon, PUMP HOUSE OPERATOR - Last Filed: 08/16/24 17:02> Exam 2 Narrative: GENERAL: Well-appearing, well-nourished, and in no acute distress. HEAD: Normocephalic, atraumatic. EYES: EOMI. ENT: Nares clear, no rhinorrhea or epistaxis. Mucous membranes moist. Bilateral TMs are tinajero nonbulging with normal canals. Posterior pharynx erythema or edema, no tonsillar hypertrophy or exudates NECK: Supple. No nuchal rigidity CHEST: Clear to auscultation. No respiratory distress. HEART: Regular rate and rhythm. No murmur heard. Normal peripheral pulses. ABDOMEN: Normoactive bowel sounds. Abdomen soft with tenderness to the left upper quadrant. No rebound or rigidity. No CVA tenderness EXTREMITIES: Normal range of motion. No edema. SKIN: Warm, dry, no rash. NEURO: No focal deficits. Alert and oriented x3 <Alida Almanza PA-C - Last Filed: 08/16/24 22:28> Course Vital Signs Vital signs: Vital Signs Temperature 98.2 F 08/16/24 16:47 Pulse Rate 72 08/16/24 16:47 Respiratory Rate 18 08/16/24 16:47 Blood Pressure 112/74 08/16/24 16:47 Pulse Oximetry 100 08/16/24 16:47 Oxygen Delivery Room Air 08/16/24 16:47 Temperature 98.2 F 08/16/24 16:47 Pulse Rate 72 08/16/24 16:47 Respiratory Rate 18 08/16/24 16:47 Blood Pressure 112/74 08/16/24 16:47 Pulse Oximetry 100 08/16/24 16:47 Oxygen Delivery Room Air 08/16/24 16:47 <Svitlana Damon, PUMP HOUSE OPERATOR - Last Filed: 08/16/24 17:02> Vital Signs Temperature 98.2 F 08/16/24 16:47 Pulse Rate 72 08/16/24 16:47 Respiratory Rate 18 08/16/24 16:47 Blood Pressure 112/74 08/16/24 16:47 Pulse Oximetry 100 08/16/24 16:47 Oxygen Delivery Room Air 08/16/24 16:47 Temperature 98.2 F 08/16/24 16:47 Pulse Rate 72 08/16/24 16:47 Respiratory Rate 18 08/16/24 16:47 Blood Pressure 112/74 08/16/24 16:47 Pulse Oximetry 100 08/16/24 16:47 Oxygen Delivery Room Air 08/16/24 16:47 <Alida Almanza PA-C - Last Filed: 08/16/24 22:28> Medical Decision Making MDM Narrative Medical decision making narrative: 23-year-old female with a reported history of fibromyalgia, pots, chronic abdominal pain presents to the emergency department for acute on chronic abdominal pain and nausea. See HPI for further history. Triage vitals are stable. Exam is notable for the above. Patient overall is well appearing and resting comfortably in exam bed. CBC with leukocytosis of 12.9, no bandemia. Chemistries are unremarkable. UA with 6-10 rbc's, no UTI. Viral swabs are negative. Lipase within normal limits. Chest x-ray shows no acute cardiopulmonary findings. CT abdomen pelvis shows mild gastritis and esophagitis. negative. Patient updated on results. She received IV fluids, Zofran, Pepcid, Toradol and Reglan in the ED. She is tolerating p.o. intake. She does endorse a history of GERD and states she has trialed Pepcid and PPIs in the past without success. She has never follow-up with GI. Will provide GI referral. She also states that she has had success with Reglan in the past, will provide this for home. Discussed increase fluid intake, BRAT diet, follow-up with PCP and strict ED return precautions. She and her mother are agreeable with the plan and verbalized understanding. Discharged in stable condition. <Alida Almanza PA-C - Last Filed: 08/16/24 22:28> Vital Signs Vital Signs: Vital Signs Temperature 98.2 F 08/16/24 16:47 Pulse Rate 72 08/16/24 16:47 Respiratory Rate 18 08/16/24 16:47 Blood Pressure 112/74 08/16/24 16:47 Pulse Oximetry 100 08/16/24 16:47 Oxygen Delivery Room Air 08/16/24 16:47 Temperature 98.2 F 08/16/24 16:47 Pulse Rate 72 08/16/24 16:47 Respiratory Rate 18 08/16/24 16:47 Blood Pressure 112/74 08/16/24 16:47 Pulse Oximetry 100 08/16/24 16:47 Oxygen Delivery Room Air 08/16/24 16:47 <Svitlana Damon APRN - Last Filed: 08/16/24 17:02> Vital Signs Temperature 98.2 F 08/16/24 16:47 Pulse Rate 72 08/16/24 16:47 Respiratory Rate 18 08/16/24 16:47 Blood Pressure 112/74 08/16/24 16:47 Pulse Oximetry 100 08/16/24 16:47 Oxygen Delivery Room Air 08/16/24 16:47 Temperature 98.2 F 08/16/24 16:47 Pulse Rate 72 08/16/24 16:47 Respiratory Rate 18 08/16/24 16:47 Blood Pressure 112/74 08/16/24 16:47 Pulse Oximetry 100 08/16/24 16:47 Oxygen Delivery Room Air 08/16/24 16:47 <Alida Almanza PA-C - Last Filed: 08/16/24 22:28> Lab Data Result diagrams: 08/16/24 18:23 08/16/24 18:23 <Svitlana Damon APRN - Last Filed: 08/16/24 17:02> Labs: Lab Results 08/16/24 08/16/24 08/16/24 Range/Units 18:23 18:31 18:38 WBC 12.9 H (4.5-10.0) K/mm3 RBC 4.18 L (4.2-5.4) M/mm3 Hgb 12.8 (12.0-15.0) g/dL Hct 39.0 (37.0-47.0) % MCV 93.3 (80-100) fl MCH 30.6 (26-34) pg MCHC 32.8 (32-36) g/dl RDW 12.3 (11.5-14.5) % Plt Count 348 (150-375) k/mm3 MPV 9.5 (7.4-10.4) fl Immature Gran % (Auto) 0.3 (0-0.5) % Neut % (Auto) 68.8 (45.5-73.1) % Lymph % (Auto) 23.5 (18.3-44.2) % [place] % (Auto) 6.7 (2.6-8.5) % Eos % (Auto) 0.2 (0-4.4) % Baso % (Auto) 0.5 (0.2-1.2) % Lymph # (Auto) 3.04 (0.9-3.2) K/mm3 [place] # (Auto) 0.9 H (0.1-0.6) K/mm3 Eos # (Auto) 0.0 (0-0.3) K/mm3 Baso # (Auto) 0.1 (0.0-0.1) K/mm3 Abs Immat Gran (auto) 0.04 H (0.00-0.031) K/mm3 Absolute Neuts (auto) 8.9 H (1.3-6.7) K/mm3 Absolute Nucleated RBC 0.000 (0.0-0.012) K/mm3 Nucleated RBC % 0.0 (0.0-0.2) % Sodium 140 (137-145) mmol/L Potassium 3.5 (3.4-5.0) mmol/L Chloride 106 (98-107) mmol/L Carbon Dioxide 24 (22-30) mmol/L Anion Gap 10 (4-12) mmol/L BUN 14 (7-17) mg/dL Creatinine 0.71 (0.7-1.0) mg/dL Estim Creat Clear Calc 97 ml/min Estimated GFR > 60 (59 - ) Glucose 90 (65-110) mg/dL Calcium 9.4 (8.4-10.2) mg/dL Total Bilirubin 0.4 (0.2-1.3) mg/dL AST 23 (14-36) U/L ALT 18 (6-35) U/L Alkaline Phosphatase 67 (38-126) U/L Total Protein 7.6 (6.3-8.2) g/dL Albumin 4.5 (3.5-5.1) g/dL Lipase 60 (23-300) U/L Urine Color Yellow (Yellow) Urine Appearance Clear (Clear) Urine pH 6.5 (5.0-9.0) Ur Specific [place] 1.024 (1.001-1.035) Urine Protein Trace (Negative) mg/dL Urine Glucose (UA) Negative (Negative) mg/dL Urine Ketones Trace H (Negative) mg/dL Ur Blood (Man) Negative (Negative) Urine Nitrate Negative (Negative) Urine Bilirubin Negative (Negative) Urine Urobilinogen 1.0 (<2.0) mg/dL Add Ur Microanalysis Reviewed Leukocyte Esterase Rfl Negative (Negative) LUI/UL Urine RBC 6-10 H (0-2) /hpf Urine WBC 0-5 (0-3) /hpf Ur Squamous Epith Cells None seen (Few) /hpf Calcium Oxalate Crystal Present (None) /hpf Urine Bacteria Rare /hpf Urine Casts 0-2 Urine Mucus Present /lpf POC Urine HCG, Qual Negative (Negative) Influenza A (RT-PCR) Negative (Negative) Influenza B (RT-PCR) Negative (Negative) RSV (RT-PCR) Negative (Negative) SARS-CoV-2 RNA (RT-PCR) Negative (Negative) <Svitlana Damon, PUMP HOUSE OPERATOR - Last Filed: 08/16/24 17:02> Lab Results 08/16/24 08/16/24 08/16/24 Range/Units 18:23 18:31 18:38 WBC 12.9 H (4.5-10.0) K/mm3 RBC 4.18 L (4.2-5.4) M/mm3 Hgb 12.8 (12.0-15.0) g/dL Hct 39.0 (37.0-47.0) % MCV 93.3 (80-100) fl MCH 30.6 (26-34) pg MCHC 32.8 (32-36) g/dl RDW 12.3 (11.5-14.5) % Plt Count 348 (150-375) k/mm3 MPV 9.5 (7.4-10.4) fl Immature Gran % (Auto) 0.3 (0-0.5) % Neut % (Auto) 68.8 (45.5-73.1) % Lymph % (Auto) 23.5 (18.3-44.2) % [place] % (Auto) 6.7 (2.6-8.5) % Eos % (Auto) 0.2 (0-4.4) % Baso % (Auto) 0.5 (0.2-1.2) % Lymph # (Auto) 3.04 (0.9-3.2) K/mm3 [place] # (Auto) 0.9 H (0.1-0.6) K/mm3 Eos # (Auto) 0.0 (0-0.3) K/mm3 Baso # (Auto) 0.1 (0.0-0.1) K/mm3 Abs Immat Gran (auto) 0.04 H (0.00-0.031) K/mm3 Absolute Neuts (auto) 8.9 H (1.3-6.7) K/mm3 Absolute Nucleated RBC 0.000 (0.0-0.012) K/mm3 Nucleated RBC % 0.0 (0.0-0.2) % Sodium 140 (137-145) mmol/L Potassium 3.5 (3.4-5.0) mmol/L Chloride 106 (98-107) mmol/L Carbon Dioxide 24 (22-30) mmol/L Anion Gap 10 (4-12) mmol/L BUN 14 (7-17) mg/dL Creatinine 0.71 (0.7-1.0) mg/dL Estim Creat Clear Calc 97 ml/min Estimated GFR > 60 (59 - ) Glucose 90 (65-110) mg/dL Calcium 9.4 (8.4-10.2) mg/dL Total Bilirubin 0.4 (0.2-1.3) mg/dL AST 23 (14-36) U/L ALT 18 (6-35) U/L Alkaline Phosphatase 67 (38-126) U/L Total Protein 7.6 (6.3-8.2) g/dL Albumin 4.5 (3.5-5.1) g/dL Lipase 60 (23-300) U/L Urine Color Yellow (Yellow) Urine Appearance Clear (Clear) Urine pH 6.5 (5.0-9.0) Ur Specific [place] 1.024 (1.001-1.035) Urine Protein Trace (Negative) mg/dL Urine Glucose (UA) Negative (Negative) mg/dL Urine Ketones Trace H (Negative) mg/dL Ur Blood (Man) Negative (Negative) Urine Nitrate Negative (Negative) Urine Bilirubin Negative (Negative) Urine Urobilinogen 1.0 (<2.0) mg/dL Add Ur Microanalysis Reviewed Leukocyte Esterase Rfl Negative (Negative) LUI/UL Urine RBC 6-10 H (0-2) /hpf Urine WBC 0-5 (0-3) /hpf Ur Squamous Epith Cells None seen (Few) /hpf Calcium Oxalate Crystal Present (None) /hpf Urine Bacteria Rare /hpf Urine Casts 0-2 Urine Mucus Present /lpf POC Urine HCG, Qual Negative (Negative) Influenza A (RT-PCR) Negative (Negative) Influenza B (RT-PCR) Negative (Negative) RSV (RT-PCR) Negative (Negative) SARS-CoV-2 RNA (RT-PCR) Negative (Negative) <Alida Almanza PA-C - Last Filed: 08/16/24 22:28> Discharge Plan Discharge Clinical Impression: Nausea, Abdominal pain, LUQ, Gastritis <Svitlana Damon APRN - Last Filed: 08/16/24 17:02> Patient Disposition: Home <Svitlana Damon APRN - Last Filed: 08/16/24 17:02> Condition: Stable <Svitlana Damon APRN - Last Filed: 08/16/24 17:02> Instructions: Antibiotic Form, Acute Nausea and Vomiting (DC), Abdominal Pain (ED) <Svitlana Damon APRN - Last Filed: 08/16/24 17:02> Additional Instructions: You were evaluated in the emergency department for abdominal pain and nausea. Your workup here shows inflammation of your stomach and esophagus as discussed. Please follow-up with GI. Drink plenty fluids including water, Gatorade and Pedialyte. Eat a bland diet such as bananas, rice, applesauce and toast. Refrain from alcohol, NSAID such is naproxen, Aleve, ibuprofen, Advil. Take metoclopramide as directed for nausea. Follow-up closely with her primary care provider. Return to the emergency department if you develop worsening or changing abdominal pain, you are unable to tolerate food or fluids, or other concerning symptoms. <Svitlana Damon APRN - Last Filed: 08/16/24 17:02> Patient Language: Afghan <Svitlana Damon APRN - Last Filed: 08/16/24 17:02> Prescriptions: New metoclopramide HCl 10 mg tablet 10 mg PO Q6H PRN (Reason: nausea and vomiting) Qty: 14 0RF No Action divalproex [Depakote ER] 500 mg Tablet Extended Release 24 Hr 1,000 mg PO DAILY clonidine HCl 0.1 mg Tablet 0.1 mg PO ONCE fluoxetine [Prozac] 20 mg Capsule 20 mg PO DAILY levocetirizine [Xyzal] 5 mg Tablet 5 mg PO DAILY omeprazole 20 mg Tablet,Delayed Release (Dr/Ec) PO BID trazodone 50 mg Tablet 50 mg PO HS propranolol 40 mg Tablet 40 mg PO DAILY albuterol sulfate 90 mcg/actuation Hfa Aerosol Inhaler 1 puff INHALATION QID hydroxyzine pamoate 25 mg Capsule 25 mg PO TID PRN (Reason: Anxiety) Nexplanon 68 mg Implant SUBDERMAL Testone CIK 200 mg/mL Kit IM WEEKLY cyclobenzaprine 10 mg tablet 10 mg PO TID PRN (Reason: muscle spasm) Qty: 7 0RF ondansetron 4 mg tablet,disintegrating 4 mg PO Q8H PRN (Reason: nausea and vomiting) Qty: 10 0RF <Svitlana Damon APRN - Last Filed: 08/16/24 17:02> Follow-up/Referrals: Wallace,Aniya Carreno APN [Primary Care Provider] - Jero Helton MD [Physician] - <Svitlana Damon APRN - Last Filed: 08/16/24 17:02>
[2024-08-16 18:30] LABS: Basophils Absolute Auto 0.1 K/mm3 (0.0-0.1); Basophils Percent Auto 0.5 % (0.2-1.2); Eosinophils Percent Auto 0.2 % (0-4.4); Hemoglobin 12.8 g/dL (12.0-15.0); Immature Granulocyte Absolute 0.04 K/mm3 (0.00-0.031); Immature Granulocyte Percent A 0.3 % (0-0.5); Lymphocytes Absolute Auto 3.04 K/mm3 (0.9-3.2); Lymphocytes Percent Auto 23.5 % (18.3-44.2); Mean Corpuscular HGB Conc 32.8 g/dl (32-36); Mean Corpuscular Hemoglobin 30.6 pg (26-34); Mean Corpuscular Volume 93.3 fl (80-100); Mean Platelet Volume 9.5 fl (7.4-10.4); Monocytes Absolute Auto 0.9 K/mm3 (0.1-0.6); Monocytes Percent Auto 6.7 % (2.6-8.5); Neutrophils Absolute Auto 8.9 K/mm3 (1.3-6.7); Neutrophils Percent Auto 68.8 % (45.5-73.1); Platelet Count Result 348 k/mm3 (150-375); Red Blood Count 4.18 M/mm3 (4.2-5.4); Red Cell Distribution Width 12.3 % (11.5-14.5); White Blood Count 12.9 K/mm3 (4.5-10.0)
[2024-08-16 18:40] LABS: BEDSIDEPREGUCG Negative (Negative)
[2024-08-16 18:40] LABS: Alanine Aminotransferase 18 U/L (6-35); Albumin Level 4.5 g/dL (3.5-5.1); Alkaline Phosphatase 67 U/L (38-126); Anion Gap 10 mmol/L (4-12); Aspartate Amino Transferase 23 U/L (14-36); Bilirubin,Total 0.4 mg/dL (0.2-1.3); Blood Urea Nitrogen 14 mg/dL (7-17); Calcium 9.4 mg/dL (8.4-10.2); Carbon Dioxide 24 mmol/L (22-30); Chloride 106 mmol/L (98-107); Estimated CRCL calculation 97 ml/min; Estimated Glomerular Filt Rate > 60; Glucose 90 mg/dL (65-110); Lipase 60 U/L (23-300); Potassium 3.5 mmol/L (3.4-5.0); Sodium 140 mmol/L (137-145); Total Protein 7.6 g/dL (6.3-8.2)
[2024-08-16 19:06] LABS: Influenza A QL RT-PCR Negative (Negative); Influenza B QL RT-PCR Negative (Negative); RSV RNA, RT-PCR Negative (Negative); SARS-CoV-2 RNA PCR Negative (Negative)
[2024-08-16 19:34] LABS: Add Urine Microscopic? YES; Appearance Urine Clear (Clear); Bacteria Urine Rare /hpf; Bilirubin Urine Negative (Negative); Blood Urine Negative (Negative); Calcium Oxalate Crystals Urine Present /hpf; Color Urine Yellow (Yellow); Glucose Urine UA Negative (Negative); Ketones Urine Trace mg/dL (Negative); Leukocyte Esterase Ur Negative LEU/UL (Negative); Mucus Urine Present /lpf; Need Manual Microscopic Reviewed; Nitrate Urine Negative (Negative); Non Pathogenic Casts 0-2; Protein Urine Trace mg/dL (Negative); Specific Grav Ur 1.024 (1.001-1.035); Squamous Epithelial Cell Urine None Seen /hpf (Few); WBC Urine 0-5 /hpf (0-3); pH Urine 6.5 (5.0-9.0)
--- OUTSIDE RECORDS SUMMARY | 2024-08-16 20:53 | XMS_ITS | Clinical Summary ---
Author Organization [facility] Address [address] [place] [address] Care Team Providers Care Occupational Therapist'S Assistant Name Role Phone Unavailable Primary Care Provider [...]
--- OUTSIDE RECORDS SUMMARY | 2024-08-16 20:53 | XMS_ITS | Encounter Summary ---
Author Organization [facility] Care Team Providers Care Corrections Lieutenant Name Role Phone Aniya Wallace APRNMADDIE Primary Care Provider [phone] Encounter Details Date Type Department Care Team [...] 10/02/2024 8:00 AM CDT Outpatient Clinic Visit [facility] [address] [place] [address] Juancho Rodriguez PSYD [place] Discharge Disposition: Discharged to home or Selfcare 10/23/2024 9:00 AM CDT Outpatient Clinic Visit [facility] [address] [place] [address] Juancho Rodriguez PSYD [place] Discharge Disposition: Discharged [...] on filedocumented in this encounter Care Teams Corrections Lieutenant Relationship Specialty Start Date End Date Aniya Wallace APRN, MADDIE [address] [place] [address] PCP - General Family Medicine 08/15/24 documented as of this encounter
--- OUTSIDE RECORDS SUMMARY | 2024-08-16 20:53 | XMS_ITS | Clinical Summary ---
Author Organization [facility] Address [facility] [place] [address] Care Team Providers Care Automation Driver Name Role Phone Aniya Wallace GETTERING FILAMENT MACHINE OPERATOR Primary Care Provider Allergies Active Allergy Reactions Criticality Noted Date [...] 6 (six) hours as needed Active cranberry [id number] coag 250-30-50 [id number] tablet Take by mouth Active magnesium carbonate [...] Description 08/16/2024 4:00 PM CDT Office Visit [facility] [address] [address] Tyrel Jarquin NP Abdominal pain (Primary Dx); Nausea; Left upper quadrant abdominal tenderness without rebound tenderness; Left lower quadrant abdominal tenderness without rebound tenderness 08/15/2024 11:15 AM CDT Therapy [facility] [place] [address] Carole Hughes, PT Pelvic and perineal pain (Primary Dx); Dysmenorrhea, unspecified 08/01/2024 10:30 AM CDT Therapy [facility] Physical [facility] [place] [address] Lyric Hughesin, PT Pelvic and perineal pain (Primary Dx); Dysmenorrhea, unspecified 07/25/2024 10:15 AM CDT Therapy [facility] [place] [address] Lyric Hughesin, PT Dysmenorrhea, unspecified (Primary Dx); Pelvic and perineal pain 06/19/2024 10:15 AM CDT Therapy [facility] [place] [address] Lyric Hughesin, PT Dysmenorrhea, unspecified (Primary Dx); Pelvic and perineal pain 06/10/2024 11:00 AM CDT [facility] [place] [address] Lyric Hughesin, PT Pelvic and perineal pain (Primary Dx); Dysmenorrhea, unspecified 06/10/2024 Plan of Care Documentation [facility] [place] [address] 05/30/2024 Telephone [facility]etrics [facility]ne[facility] Clinic [address] [place] [address] Health 3rd Floor [address] [place] [address] Sonia Ham from Last 3 [...] CDT Gender Identity Non-Binary 04/27/2022 7:54 AM PERFORMANCE IMPROVEMENT MANAGER Sexual Orientation Bisexual 04/27/2022 7: 54 AM PERFORMANCE IMPROVEMENT MANAGER Obstetrics History Last Filed Vital Signs Vital Sign Reading Time Taken Comments Blood Pressure 133/84 08/16/2024 3:23 PM CDT Pulse 99 08/16/2024 3:23 PM CDT Temperature 36.9 C (98.4 F) 08/16/2024 3:23 PM CDT Respiratory Rate 21 08/16/2024 3:23 PM CDT Oxygen Saturation 97% 08/16/2024 3:23 PM CDT Inhaled Oxygen Concentration - - Weight 55.8 kg (123 lb) 04/27/2022 2:20 PM PERFORMANCE IMPROVEMENT MANAGER Height 162.6 cm (5' 4) 04/27/2022 2:20 PM PERFORMANCE IMPROVEMENT MANAGER Body Mass Index 21.11 04/27/2022 2:20 PM PERFORMANCE IMPROVEMENT MANAGER Plan of Treatment Health Maintenance Due Date [...] patient's age to complete this topic Insurance [facility] Care Teams Automation Driver Relationship Specialty Start Date End Date Wallace, Aniya Alvarez NP [address] [place] [address] PCP - General Nurse Practitioner 09/27/21
--- OUTSIDE RECORDS SUMMARY | 2024-08-16 20:53 | XMS_ITS | Encounter Summary ---
Author Organization [facility] Address [address] [place] [address] Care Team Providers Care Cotton Picker Operator Name Role Phone MadisonAniya Kim VILLAVICENCIO Primary Care Provider [phone] Reason for Visit * Reason Comments PT Treatment * Consultation (Routine) - Authorized Specialty Diagnoses / Procedures Referred By Galo sandy Referred To Contact Physical Therapy Diagnoses Dysmenorrhea, unspecified Kassie Camarena MD [address] [place] [address] Phone: tel: fax: [facility] [place] [address] Phone: tel: fax: Referral ID Status Reason Start Date Expiration Date Visits Requested Visits Authorized [id number] Authorized Evaluate and Treat 06/10/2024 06/10/2025 6 11 Encounter Details Date Type Department Care Team (Late st Contact Info) Description 08/15/2024 11:15 AM CDT Therapy [facility] [place] [address] Carole Hughes, PT Pelvic and perineal pain (Primary Dx); Dysmenorrhea, unspecified Social History Tobacco Use Types Packs/Day Years Used Date Smoking Tobacco: Former Cigarettes Comments Unknown Sex and Gender Information Value Date Recorded Sex Assigned at Not on file Legal Sex Female 12:50 PM CDT Gender Identity Non-Binary 04/27/2022 7:54 AM TAXONOMY TEACHER Sexual Orientation Bisexual 04/27/2022 7: 54 AM TAXONOMY TEACHER documented as of this encounter Progress Notes [...] baby* Deep yoga squat* HEP: Access Code: [email or web address] - Child's Pose Stretch - 1 x [...] unspecified documented in this encounter Care Teams Cotton Picker Operator Relationship Specialty Start Date End Date Madison, Aniya Alvarez NP [address] [place] [address] PCP - General Nurse Practitioner 09/27/21 documented as of this encounter
--- OUTSIDE RECORDS SUMMARY | 2024-08-16 20:53 | XMS_ITS | Clinical Summary ---
Author Organization [facility] Address [address] [place] [address] Phone Care Team Providers Care Master Police Detective Name Role Phone Aniya Wallace APRN, CNP Primary Care Provider [phone] Medications atomoxetine (Strattera) 60 MG Capsule Take 60 mg by mouth daily. Active hydrOXYzine (ATARAX) 10 MG Tablet Take 10 mg by mouth every 6 hours as needed. 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 25 Encounters Date Type Department Care Team Description 08/15/2024 8:00 AM CDT Outpatient Clinic Visit [facility] [address] [place] [address] Juancho Rodriguez PSYD Unspecified neurodevelopmental [...] 10/02/2024 8:00 AM CDT [facility] [address] [place] [address] Juancho Rodriguez PSYD [place] Discharge Disposition: Discharged to home or Selfcare 10/23/2024 9:00 AM CDT Outpatient Clinic Visit [facility] [address] [place] [address] Juancho Rodriguez PSYD [place] Discharge Disposition: Discharged [...] Insurance [employer]ICA[employer] Care Teams Master Police Detective Relationship Specialty Start Date End Date Aniya Wallace APRN, CNP [address] [place] [id number] PCP - General Family Medicine 08/15/24
--- OUTSIDE RECORDS SUMMARY | 2024-08-16 20:53 | XMS_ITS | Encounter Summary ---
Author Organization [facility] Address [address] [place] [address] Phone Care Team Providers Care Wire Frame Maker Name Role Phone Aniya Wallace APRN, CNP Primary Care Provider [phone] Reason for Visit * Reason Comments Psychological assessment * Consult, Test & Initiate Treatment (Routine) - Authorized Specialty Diagnoses / Procedures Referred By Galo sandy Referred To Contact Behavioral Health Diagnoses ADHD Odalys Krishna APRN, CNP [address] [place] [address] Phone: tel: fax: Juancho Rodriguez PSYD [place] Referral ID Status Reason Start Date Expiration Date V isits Requested Visits Authorized [id number] Authorized 12 5 Encounter Details Date Type Department Care Team (Latest Contact Info) Description 08/15/2024 8:00 AM CDT Outpatient Clinic Visit [facility] [address] [place] [address] Juancho Rodriguez PSYD [place] Unspecified neurodevelopmental disorder [...] Crisis Resources In-Home, Mental Health Crisis Assessment [facility] Crisis Intervention Team?[phone] ([facility] Crisis Intervention Team?.. [phone] ([place]) [facility] Available for individual, family, or friend for in-home assessment of mental health issues Crisis Stabilization- Residential 24-hour or short-term supervised care at a facility. Available for persons 18 and older, who are experiencing a mental health crisis and do not need hospitalization. [facility] provides 24-hour short-term supervised care for [...] expected to attend and to participate actively. [place] will provide a safe and supportive environment conducive to achieving stability. No alcohol or drugs are allowed in the unit. All medications are dispensed by [place] nurses at appropriate times. No visitors are allowed on the unit but there is a phone available for clients to use and make calls. Persons may refer themselves for crisis residential/stabilization services and may be referred by hospitals, police departments, mental health agencies, social service agencies, and families. [facility] ?.....? .[phone] [facility] and [facility] ?.???..[phone] Brief Crisis Phone Counseling Behavioral Health Response (BHR)?[phone] / [phone] ([facility] (Medicaid patients) ?..[phone] If non-Medicaid patient, the caller will be referred to a local service provider Emergency Sites for Mental Health Assessment and Treatment Behavioral [facility] Urgent Care [facility] (5yrs old to adult) [address] [address] Monday - Monday 9:00 am - 7:00 pm *Last patient seen at 6:00 pm Hospitals with Inpatient Psychological Services for Children and/or Adolescents and Adults [facility] (also has substance use treatment for adults) (adolescent, adult) [address] [place] [address] [facility] (children, adolescents, adult) after business hours [phone] [address]. [facility] Behavioral Health (children, adolescents, adult) [address] [place] [address] [facility] (also has substance use treatment for adults) (children, adolescents, adult) Phone: or [phone] [address] [place] [address] [facility] (adolescent, adult) Phone: or [phone] [address] [place] [address] Hospitals with Inpatient Psychological Services for Adults only [facility] (adult, geriatric) [address] [place] [address] [facility] Behavioral Health (adult) [address] [place] [address] [facility] (adult) Phone: or [phone] [address] [place] [address] [facility] (geriatric only) Phone: or [phone] [address] [place] [address] [facility] (adult, geriatric) [address] [place], [place] Hotline Numbers National Suicide Prevention Hotline: ?..?.1-410-924-VHKA (5297) or [address] [place] Sexual Assault Hotline?..?.?1-422-084-LANGLEY (6693) [facility] Sexual Assault Victims Support?..9-243-008-6133 [facility] Child Abuse Hotline?.1-172.774.6979 Domestic Violence Hotline?.?.7-678-551-S DESEAN (4220) [facility] Lifeline?.? Trans Lifeline?.? LGBTQ Partner Abuse & Sexual Assault Line . .1- 646.349.3032 [facility] including support for opioids or other substances.? Crisis Text Line???..?.?.? Text the word help to 685940 [facility] Text Line for service referrals.?.?. Text the word help to 390281 Warm Lines [place] Warmline?6-938-088-79 [address] [facility] Warmline? 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 Patient attempted suicide at age 14.. -[place]- Suicide Severity Rating Scale: Risk Stratification: Suicide [...] therapists and psychiatrists, currently sees one at [facility] What was the outcome of treatment? Ongoing SOCIAL HISTORY: Current relationship status: In stable relationship-long distance Currently living with Mother Will family be involved in treatment? No Social supports, hobbies, and activities: Interest in Eastern medicine, massage, videogames, anime,cosplay. Are there any languages other than Romanian spoken in the home? No Are there any Presybeterian or Cultural Considerations that may impact treatment in any way? Yes- Spiritual FAMILY OF ORIGIN: Parent(s)/Caregiver(s): Raised by both parents separately. Place of /where raised. 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 HISTORY OF TRAUMA/ABUSE: Are you a current [...] [facility] [address] [place] [address] Juancho Rodriguez PSYD [place] Discharge Disposition: Discharged to home or Selfcare 10/23/2024 9:00 AM CDT Outpatient Clinic Visit [facility] [address] [place] [address] Juancho Rodriguez PSYD [place] Discharge Disposition: Discharged [...] disorders documented in this encounter Care Teams Wire Frame Maker Relationship Specialty Start Date End Date Aniya Wallace APRN, MAINTENANCE PAINTER [address] [place] [address] PCP - General Family Medicine 08/15/24 documented as of this encounter
--- OUTSIDE RECORDS SUMMARY | 2024-08-16 20:53 | XMS_ITS | Encounter Summary ---
Author Organization [facility] Address [address] [place] [address] Care Team Providers Care Political Research Scientist Name Role Phone Aniya Wallace NP Primary Care Provider [phone] Reason for Visit * Reason Comments Muscle Pain Patient here for c/o flare up of pain for the last few weeks, has had dizziness and nausea that started at the same time. Has not been able to keep meals down since this started. Encounter Details Date Type Department Care Team (Late st Contact Info) Description 08/16/2024 4:00 PM CDT Office Visit [facility] Con[facility] Care at [address] [address] Tyrel Jarquin NP [address] [place] [address] [address] [place] [address] Abdominal pain (Primary Dx); Nausea; Left upper quadrant abdominal tenderness without rebound tenderness; Left lower quadrant abdominal tenderness without rebound tenderness Social History Tobacco Use Types Packs/Day Years Used Date Smoking Tobacco: Former Cigarettes Comments Unknown Sex and Gender Information Value Date Recorded Sex Assigned at Not on file Legal Sex Female 12:50 PM CDT Gender Identity Non-Binary 04/27/2022 7:54 AM HAUL CANE BRAKEMAN Sexual Orientation Bisexual 04/27/2022 7: 54 AM HAUL CANE BRAKEMAN documented as of this encounter Last Filed [...] 08/16/2024 added in this encounter Care Teams Political Research Scientist Relationship Specialty Start Date End Date Aniya Wallace NP [address] [place] [address] PCP - General Nurse Practitioner 09/27/21 documented as of this encounter
--- OUTSIDE RECORDS SUMMARY | 2024-08-16 20:53 | XMS_ITS | Referral Summary ---
Author Organization [facility] Address [address] [place] [address] Care Team Providers Care Slab Grinder Name Role Phone MadisonJohnathonAniyaterrie Alvarez NP Primary Care Provider [phone] Encounters Date Type Department Care Team Description 08/16/2024 4:00 PM CDT Office Visit [facility] Care at [address] [address] Tyrel Jarquin NP Abdominal pain (Primary Dx); Nausea; Left upper quadrant abdominal tenderness without rebound tenderness; Left lower quadrant abdominal tenderness without rebound tenderness 08/15/2024 11:15 AM CDT Therapy [facility] Physical [place] [address] [address] Carole Hughes, PT Pelvic and perineal pain (Primary Dx); Dysmenorrhea, unspecified 08/01/2024 10:30 AM CDT Therapy [facility] [place] [address] [address] Carole Hughes, PT Pelvic and perineal pain (Primary Dx); Dysmenorrhea, unspecified 07/25/2024 10:15 AM CDT Therapy [facility] [place] [address] [address] Carole Hughes, PT Dysmenorrhea, unspecified (Primary Dx); Pelvic and perineal pain 06/19/2024 10:15 AM CDT Therapy [facility] [place] [address] [address] Carole Hughes, PT Dysmenorrhea, unspecified (Primary Dx); Pelvic and perineal pain 06/10/2024 Plan of Care Documentation [facility] [place] [address] 06/10/2024 11:00 AM CDT Therapy [facility] [place] [address] Carole Hughes, PT Pelvic and perineal pain (Primary Dx); Dysmenorrhea, unspecified 05/30/2024 Telephone Obstetrics and Gynecology Clinic [facility] Health 3rd Floor [address] [place] [address] Sonia Ham from Last 3 [...] 6 (six) hours as needed Active cranberry fkxt-Q-dgpygsbv coag 250-30-50 ru-dc-ggrrtje tablet Take by mouth Active magnesium carbonate [...] CDT Gender Identity Non-Binary 04/27/2022 7:54 AM ABORIGINAL LIAISON OFFICER Sexual Orientation Bisexual 04/27/2022 7: 54 AM ABORIGINAL LIAISON OFFICER Last Filed Vital Signs Vital Sign Reading Time Taken Comments Blood Pressure 133/84 08/16/2024 3:23 PM CDT Pulse 99 08/16/2024 3:23 PM CDT Temperature 36.9 C (98.4 F) 08/16/2024 3:23 PM CDT Respiratory Rate 21 08/16/2024 3:23 PM CDT Oxygen Saturation 97% 08/16/2024 3:23 PM CDT Inhaled Oxygen Concentration - - Weight 55.8 kg (123 lb) 04/27/2022 2:20 PM ABORIGINAL LIAISON OFFICER Height 162.6 cm (5' 4) 04/27/2022 2:20 PM ABORIGINAL LIAISON OFFICER Body Mass Index 21.11 04/27/2022 2:20 PM ABORIGINAL LIAISON OFFICER Plan of Treatment Not on file Insurance [facility] Care Teams Slab Grinder Relationship Specialty Start Date End Date Aniya Wallace NP [address] [place] [address] PCP - General Nurse Practitioner 09/27/21
[2024-08-16] MEDS: KETOROLAC 15 MG/ML VIAL (*BKC) IV PUSH ×2 (21:05→22:57)
[2024-08-16] MEDS: FAMOTIDINE 20 MG/2 ML VIAL IV PUSH (21:05)
[2024-08-16] MEDS: SODIUM CHLORIDE 0.9% IV 1,000 ML 999 ML IV CONT (21:05)
[2024-08-16] MEDS: ONDANSETRON INJ 4 MG/2 ML VIAL IV PUSH (22:08)
[2024-08-16] MEDS: METOCLOPRAMIDE HCL INJ 10 MG/2 ML VIAL IV PUSH (22:53)
== END 2024-08-16 23:03 | disposition home or self-care (01) ==
PROVIDERS: Registered Nurse; Emergency Provider Physician Assistant; PCP Nurse Practitioner Family
DX: K29.70 Gastritis, unspecified, without bleeding (principal); Z20.822 Contact with and (suspected) exposure to COVID-19; G90.A Postural orthostatic tachycardia syndrome [POTS]; M79.7 Fibromyalgia; E28.2 Polycystic ovarian syndrome; K21.9 Gastro-esophageal reflux disease without esophagitis; K20.90 Esophagitis, unspecified without bleeding
CPT/HCPCS: 36415; 71045; 74177; 80053; 81001; 81025; 83690; 85025; 87637; 96361; 96374; 96375; 99284; J1885; J2405; J2765; J7030; Q9967

== ENCOUNTER 2024-12-12 08:45 | Outpatient (CLI) | payer OTHER, SELFPAY ==
--- OUTSIDE RECORDS SUMMARY | 2024-12-11 14:00 | XMS_ITS | Encounter Summary ---
Author Organization [facility] Healthcare Address [address] [place] [address] Care Team Providers Care Residential Sales Representative Name Role Phone WallaceAniya Kim VILLAVICENCIO Primary Care Provider [phone] Reason for Referral * Diagnostic Imaging (Routine) - Closed Specialty Diagnoses / Procedures Referred By Contac t Referred To Contact Diagnoses Dysmenorrhea Procedures US Pelvis Complete Berto Baker NP [address] [address] Phone: tel: fax: [facility] (All Locations) Referral ID Status Reason Start Date Expiration Date Visits Re quested Visits Authorized [id number] Closed 09/25/2024 10/25/2025 1 1 Reason for Visit * Diagnostic Imaging (Routine) - Closed Specialty Diagnoses / Procedures Referred By Contac t Referred To Contact Diagnoses Dysmenorrhea Procedures US Pelvis Complete Berto Baker NP [address] [address] Phone: tel: fax: [facility] (All Locations) Referral ID Status Reason Start Date Expiration Date Visits Re quested Visits Authorized [id number] Closed 09/25/2024 10/25/2025 1 1 Encounter Details Date Type Department Care Team (Latest Contact Info) Description 12/11/2024 2:00 PM CDT - 12/11/2024 11:59 PM CDT Hospital Encounter [facility] [address] [facility] [place] [address] Dysmenorrhea Discharge Disposition: Discharge to home or self care Social History Tobacco Use Types Packs/Day Years Used Date Smoking Tobacco: Former Cigarettes Hunger Vital Sign Answer Date Recorded Within the past 12 months, y ou worried that your food would run out before you got the money to buy more. Never true 09/26/19 25 Within the past 12 months, t he food you bought just didn't last and you didn't have money to get more. 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 Sexual Orientation Queer 09/06/2024 4: 48 PM CDT documented as of this encounter Medications at Time of Discharge acetaminophen-aspir in-caffeine (EXCEDRIN MIGRAINE) 250-250-65 mg per tablet Take 1 tablet by mouth every 6 (six) hours as needed albuterol HFA (PROVENTIL HFA,VENTOLIN HFA,PROAIR HFA) 90 mcg/actuation inhaler INHALE 2 PUFFS BY MOUTH EVERY 6 HOURS 04/12/2022 cholecalciferol (Vitamin D3) 2000 unit capsule cranberry kodi-U-zfoxuswc coag 250-30-50 zm-mr-ivfomvc tablet Take by mouth ELDERBERRY FRUIT ORAL gabapentin (NEURONTIN) 100 mg capsule Take 1 capsule (100 mg total) by mouth 2 (two) times a day 11/16/2024 hydrOXYzine (ATARAX) 10 mg tablet Take 1 tablet (10 mg total) by mouth every 6 (six) hours as needed L. acidophilus/dig enz cmb 5 (PROBIOTIC-DIGESTIV E ENZYMES ORAL) magnesium carbonate (MAGONATE) liquid (54 mg of elemental magnesium/5 mL) midodrine (PROAMATINE) 2.5 mg tablet 08/16/2024 mirtazapine (REMERON) 7.5 mg tablet TAKE ONE TABLET BY MOUTH NEEDED AT BEDTIME FOR SLEEP DISTURBANCE ondansetron ODT (ZOFRAN-ODT) 4 mg disintegrating tabletIndications:N ausea Take 1 tablet (4 mg total) by mouth every 8 (eight) hours as needed for nausea or vomiting 10 tablet 12/01/2024 propranolol LA (INDERAL LA) 120 mg 24 hr capsule Take by mouth daily Slynd tablet tablet Take 1 each (4 mg total) by mouth daily 08/01/2024 sodium chloride 1,000 mg tablet Take 1 tablet (1 g total) by mouth 2 (two) times a day 06/27/2024 Strattera 40 mg capsule TAKE 1 CAPSULE EVERY DAY BY ORAL ROUTE DIRECTED FOR 30 DAYS, FOR ADHD. thymol/chlorophylli n (CHLOROPHYLL ORAL) Vyvanse 10 mg capsule Take 1 capsule (10 mg total) by mouth daily 11/29/2024 documented as of this encounter Discharge Disposition Disposition Code Departure Means Destination Discharge to home or self care documented in this encounter Plan of Treatment Not on file documented as of this encounter Procedures Procedure Name Priority Date/Time Associated Diagnosis Comments US PELVIS COMPLETE Schedule Routine, Read Routine (OP Routine) 12/11/2024 2:00 PM CDT Dysmenorrhea documented in this encounter Results * US Pelvis Complete (12/11/2024 2:00 PM CDT) Cul de Sac No free fluid visualized VIEWPOINT Endometrial Thickness 1.2 mm&millim eters VIEWPOINT Anatomical Region Laterality Modality Pelvis N/A Ultrasound 12/11/2024 2:10 PM CDT Impressions 12/11/2024 3:29 PM CDT 1- Normal appearing uterus 2- Normal appearing ovaries with small follicles. 3- No adnexal masses are identified. Narrative Procedure Note Jeyson Fisher MD - 12/11/2024 IMPRESSION: 1- Normal appearing uterus 2- Normal appearing ovaries with small follicles. 3- No adnexal masses are identified. us Berto Baker NP IMG US PROCEDURES Final Resu lt documented in this encounter Visit Diagnoses Diagnosis Dysmenorrhea documented in this encounter Care Teams Residential Sales Representative Relationship Specialty Start Date End Date Aniya Wallace NP [address] [place] [address] PCP - General Nurse Practitioner 09/27/21 documented as of this encounter
--- NOTE | ~2024-12-12 | CT_ITS ---
EXAMINATION: CT abdomen pelvis w con DATE: 12/12/2024 09:22 INDICATION: Right lower quadrant abdominal mass. Periumbilical pain. TECHNIQUE: Computed tomography (CT) of the abdomen and pelvis was performed with 100 mL Omnipaque 350 intravenous contrast. Automated exposure control and iterative reconstruction technique were employed. The dose-length product was 447.93 mGy-cm. COMPARISON: CT abdomen and pelvis 08/16/2024 FINDINGS: The visualized portions of the lung bases are clear without pneumonia or pleural effusion. The heart size is normal. No pericardial effusion. The liver, gallbladder, spleen, pancreas, adrenal glands, and kidneys are normal. There are no dilated loops of bowel. The appendix is normal. There are no pathologically enlarged lymph nodes. There is no free intraperitoneal fluid. The ovaries are normal. There is mild lumbar spondylosis. IMPRESSION: 1. No etiology for the patient's symptoms. Reviewed, dictated and finalized at location E.
--- OUTSIDE RECORDS SUMMARY | 2024-12-12 08:58 | XMS_ITS | Clinical Summary ---
Author Organization [facility] Address [address] [place] [address] Care Team Providers Care Senior Dot Net Developer Name Role Phone Unavailable Primary Care Provider Unavailabl e Social History Tobacco Use Types Packs/Day Years [...] of 3 - 19+ 3-dose series) 11/2021 CERVICAL CANCER SCREENING 11/20/2023 HPV/Cotest (21-29) 11/20/2023 PAP SMEAR 11/20/2023 INFLUENZA VACCINE (#1) 2024 Insurance [employer] [facility] [place] [address]
--- OUTSIDE RECORDS SUMMARY | 2024-12-12 08:58 | XMS_ITS | Clinical Summary ---
Author Organization [facility] Address [facility] [place] [address] Care Team Providers Care Grain Distributor Name Role Phone MadisonJohnathonAniyaterrie Alvarez ACCOUNT SERVICES ASSOCIATE Primary Care Provider Allergies Active Allergy Reactions Criticality Noted Date Comments Adhesive Rash,Other (See comments) Medium 11/09/2021 adhesive Cefdinir Other (See comments),Vomiting Low 11/24/2021 Severe acid reflux Clindamycin Angioedema,Unknown High 11/09/2021 clindamycin Doxycycline Other (See comments) 08/16/2024 Pt unsure - possibly throat swelling Nickel Hives Medium 11/09/2021 Nystatin Rash,Other (See comments) Medium 11/09/2021 nystatin Medications acetaminophen-asp irin-caffeine (EXCEDRIN MIGRAINE) 250-250-65 mg per tablet Take 1 tablet by mouth every 6 (six) hours as needed Active cranberry arjx-W-wkdcshax coag 250-30-50 xu-el-zchjtre tablet Take by mouth Active magnesium carbonate [...] each (4 mg total) by mouth daily 025 Active Strattera 40 mg capsule TAKE 1 CAPSULE EVERY DAY BY ORAL ROUTE DIRECTED FOR 30 DAYS, FOR ADHD. Active gabapentin (NEURONTIN) 100 mg capsule Take 1 capsule (100 mg total) by mouth 2 (two) times a day 025 Active Vyvanse 10 mg capsule Take 1 capsule (10 mg total) by mouth daily 025 Active ondansetron ODT (ZOFRAN-ODT) 4 mg disintegrating tabletIndications :Nausea Take 1 tablet (4 mg total) by mouth every 8 (eight) hours as needed for nausea or vomiting 10 tablet 025 Active ondansetron ODT (ZOFRAN-ODT) 4 mg disintegrating tabletIndications :Nausea Take 1 tablet (4 mg total) by mouth every 8 (eight) hours as needed for nausea or vomiting 10 tablet 025 2024 Discontinued Active Problems Problem Noted Date Diagnosed Date Unspecified neurodevelopmental disorder 08/16/19 25 Dysmenorrhea 05/23/2024 Irregular periods 05/23/2024 Multiple joint pain 11/09/2022 Tachycardia 11/09/2022 Gender dysphoria 04/27/2022 Anxiety disorder 01/23/2022 Seizure-like activity 11/09/2021 Fibromyalgia 11/09/2021 Abnormal gait 10/12/2021 Hematochezia 10/12/2021 Posttraumatic stress disorder 10/12/2021 Acne 07/12/2021 Mood disorder 07/12/2021 Encounters Date Type Department Care Team Description 12/11/2024 2:00 PM CDT - 12/11/2024 11:59 PM CDT Hospital Encounter [facility] Ultrasound [address] [facility] [place] [address] Dysmenorrhea Discharge Disposition: Discharge to home or self care 12/01/2024 4:45 PM CDT Office Visit [facility] at [address] [address] Brenda Laguerre NP Nausea (Primary Dx) 10/14/2024 10:30 AM CDT Therapy [facility] [place] [address] Carole Hughes, PT Dysmenorrhea, unspecified (Primary Dx); Pelvic and perineal pain 10/14/2024 Plan of Care Documentation [facility] [place] [address] 10/03/2024 11:00 AM CDT Therapy [facility] [place] [address] Carole Hughes, PT Dysmenorrhea, unspecified (Primary Dx); Pelvic and perineal pain 09/26/2024 11:00 AM CDT Therapy [facility] [place] [address] Carole Hughes, PT Dysmenorrhea, unspecified (Primary Dx); Pelvic and perineal pain 09/25/2024 4:55 PM CDT - 09/25/2024 11:59 PM CDT Hospital Encounter [address] [address] Well woman exam Discharge Disposition: Discharge to home or self care 09/25/2024 10:15 AM CDT Office Visit [facility] [address] [place] [address] Outpatient [facility] 3rd Floor [address] [place] [phone] Berto Baker NP Dysmenorrhea (Primary Dx); Atypical squamous cells of undetermined significance (ASC-US) on cervical Pap smear; Well woman exam 09/19/2024 11:00 AM CDT Therapy [facility] [place] [address] Carole Hughes, PT Dysmenorrhea, unspecified (Primary Dx); Pelvic and perineal pain from Last 3 Months Immunizations Immunization Administration Dates Next Due Influenza, Quadrivalent, Split, Intramuscular Influenza, Trivalent, IM (MDV) 03/11/2024 Sars-cov-2 Covid-19 Mrna, Bi valent, Original/omicron Ba.1 05/23/2024,02/15/2023 Tdap 05/23/2024 Surgical History Surgery Date Site/Laterality Comments WISDOM TOOTH EXTRACTION Medical History Medical History Date Comments Headache, tension-type Hypertension Migraine Drug abuse Psychiatric diagnosis Seizures (HCC) POTS (postural orthostatic tachycardia syndrome) Fibromyalgia Family History Medical History Relation Name Comments Hypertension Father Migraines Father Seizures Father Stroke Father Dementia Maternal Grandmother Diabetes Maternal Grandmother Migraines Mother Relation Name Status Comments Father Maternal Grandmother Mother Social History Tobacco Use Types Packs/Day Years Used Date Smoking Tobacco: Former Cigarettes Tobacco Cessation:Counseling Given: Not Answered Hunger Vital Sign Answer Date Recorded Within [...] CDT Gender Identity Non-Binary 04/27/2022 7:54 AM FORESTER AIDE Sexual Orientation Queer 09/06/2024 4: 48 PM CDT Obstetrics History Para Term AB IAB SAB Ectopic Multiple Livin g Live Births 0 0 0 0 0 0 0 0 0 0 0 Last Filed Vital Signs Vital Sign Reading Time Taken Comments Blood Pressure 122/80 12/01/2024 4:25 PM CDT Pulse 78 12/01/2024 4:25 PM CDT Temperature 36.7 C (98 F) 12/01/2024 4:25 PM CDT Respiratory Rate 18 12/01/2024 4:25 PM CDT Oxygen Saturation 98% 12/01/2024 4:25 PM CDT Inhaled Oxygen Concentration - - Weight 73 kg (161 lb) 12/01/2024 4:25 PM CDT Height 165.1 cm (5' 5) 12/01/2024 4:25 PM CDT Body Mass Index 26.79 12/01/2024 4:25 PM CDT Plan of Treatment Health Maintenance Due Date Last Done Comments Depression Screening 2002 Hepatitis C Screening 2002 Varicella Vaccines (1 of 2 - 13+ 2-dose series) 11/20/2015 HPV Vaccines (1 - 3-dose series) 2017 Meningococcal B Vaccine (1 of 2 - Standard) 2018 Hepatitis B Screening 2020 Regular Well Visit/Exam 18-64 2020 Covid-19 Vaccine (2024- season) 2024 05/23/2024, 02/15/2023, 03/03/2021, Additional history exists Influenza Vaccine (#1) 2024 03/11/2024, 2022 Cervical Cancer Screening 09/25/2025 09/25/2024 DTaP/Tdap/Td Vaccine (2 - Td or Tdap) 05/23/2034 05/23/2024 Pneumococcal vaccine <65 Aged Out No longer eligible based on patient's age to complete this topic Procedures Procedure Name Priority Date/Time Associated Diagnosis Comments US PELVIS COMPLETE Schedule Routine, Read Routine (OP Routine) 12/11/2024 2:00 PM CDT Dysmenorrhea PAP ONLY Routine 09/25/2024 12:14 PM CDT Well woman exam THINPREP PROCESSING (MOLECULAR COMPONENT) Routine 09/25/2024 12:14 PM CDT Well woman exam from Last 3 Months Results * US Pelvis Complete (12/11/2024 2:00 PM CDT) Cul de Sac No free fluid visualized VIEWPOINT Endometrial Thickness 1.2 mm&millim eters VIEWPOINT Anatomical Region Laterality Modality Pelvis N/A Ultrasound 12/11/2024 2:10 PM CDT Impressions 12/11/2024 3:29 PM CDT 1- Normal appearing uterus 2- Normal appearing ovaries with small follicles. 3- No adnexal masses are identified. Narrative Procedure Note Jeyson Fihser MD - 12/11/2024 IMPRESSION: 1- Normal appearing uterus 2- Normal appearing ovaries with small follicles. 3- No adnexal masses are identified. us Berto Baker NP IMG US PROCEDURES Final Resu lt * ThinPrep processing (Molecular component) (09/25/2024 12:14 PM CDT) ThinPrep processing (Molecular component) Specimen received for processing. [facility] Endocervical 09/25/2024 12:1 4 PM CDT 09/26/2024 8:37 AM CDT Berto Baker NP LAB BODY FLUIDS AND STOOLS O RDERABLES Final Result [facility] Department [place] [address] [facility] * Pap Only (Cytology Component) (09/25/2024 12:14 PM CDT) Thin prep (Pap test) 09/25/2024 12:14 PM CDT 09/25/2024 4:55 PM CDT Narrative PATHOLOGY [facility] - 10/01/2024 4:20 PM CDT EPIC results best viewed via link to PDF [facility] [place] [address] Note to Patients: This report may contain a detailed description of human tissue sent by a health care provider to the laboratory for pathologic evaluation. The content of this report is essential for diagnosis and may provide important critical findings. This information may be unfamiliar to patients to review without a medical professional present. It is advised that the patient review this report in the presence of a health care provider who can answer questions and explain the details. CYTOPATHOLOGY REPORT FINAL Patient Name: ALEXI FERRO Gender: F : 2000 (Age: 23) Address: [address] [place] [address] Hospital #: [id number] Service: JD EDWARDS DEVELOPER Location: Patient Type: [facility] Ref Lab Serie Taken: 09/25/2024 Received: 09/25/2024 Accessioned: 09/26/2024 Reported: 10/01/2024 Physician(s): Berto Baker RN FINAL INTERPRETATION SOURCE OF SPECIMEN Liquid based Thin Prep pap: STATEMENT OF ADEQUACY - Satisfactory for evaluation - Endocervical cells/transformation zone sample absent GENERAL CATEGORIZATION: - Negative for squamous intraepithelial lesion or malignancy lwl/10/01/2024 16:20 KAMINI Baxter MS(ASCP)ALEJANDRA Report Electronically Reviewed and Signed Out By KAMINI Baxter MS(ASCP)ALEJANDRA 10/01/2024 16:20:24 Cervicovaginal Cytology (Pap Test) Disclaimer: The Pap test is a screening test used to detect cervical cancer and its precursors; it is not a diagnostic procedure. False negative and false positive results do occur. Pap test results should be interpreted in the context of pertinent clinical information and biopsy results as indicated. [facility] Clinical Laboratory Improvement Amendments (CLIA) mandate that cytologic and histologic results be correlated for laboratory software quality assurance engineer & improvement standards. FOR ALL HIGH-GRADE CASES we request submission of follow-up histological material and/or reports that have not been previously provided so that we may fulfill said required standards. Gross Description A. Liquid based Thin Prep pap: Cervical/vaginal - Screening ThinPrep Clinical Diagnosis and History Last Menstrual Period: OCPS The patient is a 23 year old female with first pap. Report Images and scanned documents, if included only viewable in PDF version The performance characteristics of some immunohistochemical stains, in-situ hybridization and fluorescence in-situ hybridization tests and immunophenotyping by flow cytometry cited in this report (if any) were determined by the Surgical Pathology Department at [facility] as part of an ongoing quality process auditor program and in compliance with federally mandated regulations drawn from the Clinical Laboratory Improvement Act of 1988 (CLIA '88). Some of these tests rely on the use of analyte specific reagents and are subject to specific labeling requirements by the US Food and Drug Administration. Such diagnostic tests may only be performed in a facility that is certified by the Department of Health and Human Services as a high complexity laboratory under CLIA '88. The FDA has determined that such clearance or approval is not necessary. This test is used for clinical purposes. It should not be regarded as investigational or for research. Nevertheless, federal rules concerning the medical use of analyte specific reagents require that the following disclaimer be attached to the report: This test was developed and its performance characteristics determined by the Surgical Pathology Department of [facility]. It has not been cleared or approved by the U. S. Food and Drug Administration. Berto Baker NP LAB CYTOLOGY ORDERABLES Sarah olivera Result PATHOLOGY [facility] 3rd Floor [place], [place] [phone] from Last 3 Months Insurance [facility] [place] [address] Care Teams Grain Distributor Relationship Specialty Start Date End Date Aniya Wallace NP [address] [place] [address] PCP - General Nurse Practitioner 09/27/21
--- OUTSIDE RECORDS SUMMARY | 2024-12-12 08:58 | XMS_ITS | Clinical Summary ---
Author Organization [facility] Address [address] [place] [address] Phone Care Team Providers Care Engineering Mechanic Name Role Phone Aniya Wallace MADDIE CARRERA Primary Care Provider [phone] Medications atomoxetine (Strattera) 60 MG Capsule Take 60 mg by mouth daily. Active hydrOXYzine (ATARAX) 10 MG Tablet Take 10 mg by mouth every 6 hours as needed. Active lisdexamfetamine dimesylate (Vyvanse) 20 MG Capsule Take 10 mg by mouth daily. Active Active Problems Problem Noted Date Diagnosed Date PTSD (post-traumatic stress disorder) 11/12/2024 Obsessive compulsive disorder, with good or fair insight 10/30/2024 Major depressive disorder, single episode, moder ate 10/30/2024 Autism spectrum disorder, wi thout accompanying intellectual or language impairment, requiring support (level 1) 10/30/2024 Attention deficit hyperactivity disorder, inatte ntive type 10/30/2024 Unspecified neurodevelopmental disorder 08/16/19 Encounters Date Type Department Care Team Description 12/10/2024 4:30 PM CDT Telemedicine [facility] [address] [place] [address] Kimberly Armstrong, SPORTS COORDINATOR Major depressive disorder, single episode, moderate (HCC) (Primary Dx) Discharge Disposition: Discharged to home or Selfcare 12/08/2024 Travel 12/03/2024 3:00 PM CDT Telemedicine [facility] [address] [facility] [place] [address] Kimberly Armstrong LCPC Major depressive disorder, single episode, moderate (HCC) (Primary Dx) Discharge Disposition: Discharged to home or Selfcare 12/02/2024 Travel 12/01/2024 Travel 11/26/2024 3:00 PM CDT Telemedicine [facility] [address] [facility] [place] [address] Kimberly Armstrong LCPC Major depressive disorder, single episode, moderate (HCC) (Primary Dx) Discharge Disposition: Discharged to home or Selfcare 11/24/2024 Travel 11/18/2024 Travel 11/12/2024 3:00 PM CDT Telemedicine [facility] [address] [place] [phone] Kimberly Armstrong LCPC Autism spectrum disorder, without accompanying intellectual or language impairment, requiring support (level 1) (Primary Dx); PTSD (post-traumatic stress disorder) Discharge Disposition: Discharged to home or Selfcare 11/10/2024 Travel 10/30/2024 9:15 AM CDT Outpatient Clinic Visit [facility] [address] [facility] [place] [place] [address] Kimberly Armstrong LCPC Obsessive compulsive disorder, with good or fair insight (Primary Dx); Major depressive disorder, single episode, moderate (HCC); Autism spectrum disorder, without accompanying intellectual or language impairment, requiring support (level 1); Attention deficit hyperactivity disorder, inattentive type; PTSD (post-traumatic stress disorder) Discharge Disposition: Discharged to home or Selfcare 10/29/2024 Travel 10/23/2024 9:00 AM CDT Outpatient Clinic Visit [facility] [address] [place] [address] Juancho Rodriguez, PSYD Autism spectrum disorder, without accompanying intellectual or language impairment, requiring support (level 1) (Primary Dx); Obsessive compulsive disorder, with good or fair insight; Excoriation (skin-picking) disorder; Major depressive disorder, single episode, moderate (HCC); Attention deficit hyperactivity disorder, inattentive type Discharge Disposition: Discharged to home or Selfcare 10/21/2024 Travel 10/02/2024 8:00 AM CDT Outpatient Clinic Visit [facility] [address] [place] [address] Juancho Rodriguez PSYD Obsessive compulsive disorder, with good or fair insight (Primary Dx); Unspecified neurodevelopmental disorder Discharge Disposition: Discharged to home or Selfcare 09/30/2024 Travel from Last 3 Months Family History Medical History Relation Name Comments ADD / ADHD Brother Logan (25) ADD / ADHD Father Geovanny (54) Bipolar Disorder Father Geovanny (54) Estranged f rom father Hypertension Father Geovanny (54) Seizures Father Geovanny (54) Bipolar Disorder Mother Francia (53) Endometriosis Mother Francia (53) Migraines Mother Francia (53) Relation Name Status Comments Brother Logan (25) Alive Father Geovanny (54) Alive Mother Francia (53) Alive Social History Tobacco Use Types Packs/Day [...] Other 08/16/2024 1:14 PM CDT Sexual Orientation Something else 10/23/2024 1: 22 PM CDT Plan of Treatment Upcoming Encounters Date Type Department Care Team (Late st Contact Info) Description 12/24/2024 3:00 PM CDT Telemedicine [facility] [address] [place] [address] Kimberly Armstrong, [facility] [address] [place] [address] Discharge Disposition: Discharged to home or Selfcare 01/13/2025 4:00 PM INSURANCE VERIFICATION 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 Telemedicine [facility] [address] [place] [phone] Kimberly Armstrong LCPC [address] [place] [address] Health Maintenance Due Date Last Done Comments Hepatitis C Virus (HCV) Screening 2002 Human Papillomavirus (HPV) Immunization (1 - 3-dose series) 2017 Meningococcal B Immunization (1 of 2 - Standard) 2018 Hepatitis B Immunization (1 of 3 - 19+ 3-dose series) 2021 Pap Smear 11/20/2023 Influenza Immunization (#1) 2024 03/11/2024, 1 04/18/2022 Respiratory Syncytial Virus (RSV) Immunization (Adult) (1 - 1-dose 75+ series) 2077 SARS-COV-2 Immunization Completed 05/24/19 25, 02/15/2023, 03/03/2021, Additional history exists TdaP Immunization [...] Type Associated Problems Recent Progress Patient-Stated? Author Depression, Anxiety, and ADHD Depression On track(2024 4:38 PM CDT) Yes Kimberly Armstrong LCPC Note: Work towards goals more consistently Need to know limits (ADHD gets in the way, along with fatigue) Goal/Objective: Improve organization. Anticipated Time Frame for Goal Completion: 6 months Goal Reviewed with: patient Readiness to change: Ready to change Department associated with goal: [facility] Steps to achieve goal: will attend counseling/psychotherapy sessions at least once monthly, at least 6 sessions, utilizing individual and/or group sessions to express thoughts and feelings. to identify, verbalize and process at least three contributing factors/triggers to anxiety and depression. to identify and verbalize at least three actions/skills to prevent and/or cope with anxiety and depression. to put into action, at least one time weekly, for one month, an action/skill to prevent and or cope with anxiety and depression. Insurance [employer] Care Teams Engineering Mechanic Relationship Specialty Start Date End Date Aniya Wallace APRN, MADDIE PCP - General Family Medicine 08/15/24
== END 2024-12-12 08:46 | disposition home or self-care (01) ==
PROVIDERS: PCP Nurse Practitioner Family; Visit Provider Nurse Practitioner
DX: R19.03 Right lower quadrant abdominal swelling, mass and lump (principal); R10.33 Periumbilical pain; R11.0 Nausea
CPT/HCPCS: 74177; Q9967

== ENCOUNTER 2024-12-14 18:11 | Emergency (ER) | payer OTHER, SELFPAY ==
--- NOTE | ~2024-12-14 | CT_ITS ---
EXAMINATION: CTA abdomen pelvis DATE: 12/14/2024 22:35 INDICATION: Gastrointestinal hemorrhage. TECHNIQUE: Computed tomographic angiography (CTA) of the abdomen and pelvis was performed with 100 mL Omnipaque-350 intravenous contrast. Automated exposure control and iterative reconstruction technique were employed. The dose-length product was 466.44 mGy-cm. Maximum intensity projection 3D-reconstructions of the aorta and other arteries were constructed by the technologist on a separate workstation. COMPARISON: CT abdomen and pelvis 12/12/2024 FINDINGS: The visualized portions of the lung bases are clear without pneumonia or pleural effusion. The heart size is normal. No pericardial effusion. The liver, gallbladder, spleen, pancreas, adrenal glands, and kidneys are normal. There are no dilated loops of bowel. The appendix is normal. There is no significant stenosis of celiac axis, superior mesenteric artery, the renal arteries, or inferior mesenteric artery. There is mild thoracic and lumbar spondylosis. IMPRESSION: 1. No etiology for the patient's symptoms. Reviewed, dictated and finalized at location E.
--- OUTSIDE RECORDS SUMMARY | 2024-12-14 18:14 | XMS_ITS | Clinical Summary ---
Author Organization [facility] Address [address] [place] [address] Phone Care Team Providers Care Exhibit Carpenter Name Role Phone Aniya Wallace MADDIE CARRERA Primary Care Provider [phone] Medications atomoxetine (Strattera) 60 MG Capsule Take [...] Team Description 12/10/2024 4:30 PM CDT [facility] [address] [place] [address] Kimberly Armstrong, OSTEOPATHIC NEUROLOGIST Major depressive disorder, single episode, moderate (HCC) (Primary Dx) Discharge Disposition: Discharged to home or Selfcare 12/08/2024 Travel 12/03/2024 3:00 PM CDT [facility] 1 [facility] [place] [address] Kimberly Armstrong LCPC Major depressive disorder, single episode, moderate (HCC) (Primary Dx) Discharge Disposition: Discharged to home or Selfcare 12/02/2024 Travel 12/01/2024 Travel 11/26/2024 3:00 PM CDT Telemedicine [facility] 1 [facility] [place] [address] Kimberly Armstrong LCPC Major depressive disorder, single episode, moderate (HCC) (Primary Dx) Discharge Disposition: Discharged to home or Selfcare 11/24/2024 Travel 11/18/2024 Travel 11/12/2024 3:00 PM CDT Telemedicine [facility] [address] [place] [phone] Kimberly Armstrong LCPC Autism spectrum disorder, without accompanying intellectual or language impairment, requiring support (level 1) (Primary Dx); PTSD (post-traumatic stress disorder) Discharge Disposition: Discharged to home or Selfcare 11/10/2024 Travel 10/30/2024 9:15 AM CDT Outpatient Clinic Visit [facility] 1 [facility] [place] [address] Kimberly Armstrong LCPC Obsessive compulsive disorder, with good or fair insight (Primary Dx); Major depressive disorder, single episode, moderate (HCC); Autism spectrum disorder, without accompanying intellectual or language impairment, requiring support (level 1); Attention deficit hyperactivity disorder, inattentive type; PTSD (post-traumatic stress disorder) Discharge Disposition: Discharged to home or Selfcare 10/29/2024 Travel 10/23/2024 9:00 AM CDT Outpatient Clinic Visit [facility] [address] [place] [address] Juancho Rodriguez, PSYD Autism spectrum disorder, without accompanying intellectual or language impairment, requiring support (level 1) (Primary Dx); Obsessive compulsive disorder, with good or fair insight; Excoriation (skin-picking) disorder; Major depressive disorder, single episode, moderate (HCC); Attention deficit hyperactivity disorder, inattentive type Discharge Disposition: Discharged to home or Selfcare 10/21/2024 Travel 10/02/2024 8:00 AM CDT Outpatient Clinic Visit [facility] [address] [place] [address] Juancho Rodriguez PSYD Obsessive compulsive disorder, with [...] Info) Description 12/24/2024 3:00 PM CDT Telemedicine [facility] [address] [place] [address] Kimberly Armstrong, [facility] [address] [place] [address] Discharge Disposition: Discharged to home or Selfcare 01/13/2025 4:00 PM SNOUT PULLER Telemedicine [facility] [address] [place] [phone] Kimberly Armstrong LCPC 1 [place] [address] Discharge Disposition: Discharged to home or Selfcare [...] Ready to change Department associated with goal: [facility] Steps to achieve goal: [...] cope with anxiety and depression. Insurance MEDICAID [facility] Care Teams Exhibit Carpenter Relationship Specialty Start Date End Date Aniya Wallace APRN, CNP PCP - General Family Medicine 08/15/24
--- OUTSIDE RECORDS SUMMARY | 2024-12-14 18:14 | XMS_ITS | Clinical Summary ---
Author Organization [facility] Address [facility] [place] [address] Care Team Providers Care Turkey Pinner Name Role Phone MadisonJohnathonAniyaterrie Alvarez ENVIRONMENTAL ISSUES INSTRUCTOR Primary Care Provider Allergies Active Allergy Reactions [...] 6 (six) hours as needed Active cranberry [id number] coag 250-30-50 [id number]-[id number] tablet Take by mouth Active magnesium carbonate [...] Encounters Date Type Department Care Team Description 12/12/2024 11:00 AM CDT Therapy [facility] [place] [address] Carole Hughes, PT Dysmenorrhea, unspecified (Primary Dx); Pelvic and perineal pain 12/11/2024 2:00 PM CDT - 12/11/2024 11:59 PM CDT Hospital Encounter [facility] - Ultrasound [address] [place] [address] Dysmenorrhea Discharge Disposition: Discharge to home or self care 12/01/2024 4:45 PM CDT Office Visit [facility] Care at [address] [address] Brenda Laguerre NP Nausea (Primary Dx) 10/14/2024 10:30 AM CDT Therapy [facility] [place] [address] [address] Carole Hughes, PT Dysmenorrhea, unspecified (Primary Dx); Pelvic and perineal pain 10/14/2024 Plan of Care Documentation [facility] [place] [address] [id number] 10/03/2024 11:00 AM CDT Therapy [facility] [place] [address] [address] Carole Hughes, PT Dysmenorrhea, unspecified (Primary Dx); Pelvic and perineal pain 09/26/2024 11:00 AM CDT Therapy [facility] [place] [address] Carole Hughes, PT Dysmenorrhea, unspecified (Primary Dx); Pelvic and perineal pain 09/25/2024 4:55 PM CDT - 09/25/2024 11:59 PM CDT Hospital Encounter [address] [address] Well woman exam Discharge Disposition: Discharge to home or self care 09/25/2024 10:15 AM CDT Office [facility] [address] [place] [address] 3rd Floor [address] [place] [address] Berto Baker NP Dysmenorrhea (Primary Dx); Atypical squamous cells of undetermined significance (ASC-US) on cervical Pap smear; Well woman exam 09/19/2024 11:00 AM CDT Therapy [facility] Physical [facility] - [address] [place] [address] Carole Hughes PT Dysmenorrhea, unspecified (Primary Dx); Pelvic and [...] CDT Gender Identity Non-Binary 04/27/2022 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 [facility] Endocervical 09/25/2024 12:1 4 PM CDT 09/26/2024 8:37 AM CDT Berto Baker NP LAB BODY FLUIDS AND STOOLS O RDERABLES Final Result [facility] Department [place] [address] [facility] * Pap Only (Cytology Component) (09/25/2024 12:14 PM CDT) Thin prep (Pap test) 09/25/2024 12:14 PM CDT 09/25/2024 4:55 PM CDT Narrative PATHOLOGY [facility] - 10/01/2024 4:20 PM CDT EPIC results best viewed via link to PDF [facility] Surgical [facility]ology [facility] [place] [address] Note to Patients: This report may contain [...] Gender: F : 2000 (Age: 23) Address: [address] [place] [address] Hospital #: [id number] Service: [facility] ASSISTANT DIRECTOR Location: Patient Type: [facility] Ref Lab Serie Taken: 09/25/2024 Received: 09/25/2024 Accessioned: 09/26/2024 Reported: 10/01/2024 Physician(s): Berto Baker RN FINAL INTERPRETATION SOURCE OF SPECIMEN Liquid based Thin Prep pap: STATEMENT OF ADEQUACY - Satisfactory for evaluation - Endocervical cells/transformation zone sample absent GENERAL CATEGORIZATION: - Negative for squamous intraepithelial lesion or malignancy lw/10/01/2024 16:20 KAMINI Baxter MS(ASCP)ALEJANDRA Report Electronically Reviewed [...] clinical information and biopsy results as indicated. [facility] Clinical Laboratory Improvement Amendments (CLIA) mandate that cytologic and histologic results be correlated for laboratory quality assurance practice manager & improvement standards. FOR ALL HIGH-GRADE CASES [...] determined by the Surgical Pathology Department at [facility] as part of an ongoing quality checker program and in compliance with federally mandated [...] determined by the Surgical Pathology Department of [facility]. It has not been cleared or approved by the U. S. Food and Drug Administration. Berto Baker NP LAB CYTOLOGY ORDERABLES Sarah l Result PATHOLOGY [facility] 3rd Floor [place], [place] [phone] from Last 3 Months Insurance [facility] Care Teams Turkey Pinner Relationship Specialty Start Date End Date Aniya Wallace NP [address] [place] [address] PCP - General Nurse Practitioner 09/27/21
--- OUTSIDE RECORDS SUMMARY | 2024-12-14 18:14 | XMS_ITS | Clinical Summary ---
Author Organization [facility] Address [address] [place] [address] Care Team Providers Care Hardboard Supervisor Name Role Phone Unavailable Primary Care Provider [...] (#1) 2024 Insurance [employer] [address] [place] [address]
[2024-12-14 18:17] VITALS: BP 106/76; PULSE 66; RESP 18; TEMP 37.1; O2SAT 100
[2024-12-14 20:30] VITALS: BP 109/77; PULSE 67; RESP 12; O2SAT 100
--- NOTE | 2024-12-14 20:35 | ED.ABDPAIN ---
HPI - Abdominal Pain General Chief Complaint: Abdominal Pain Stated Complaint: abd. pain, rectal bleeding Time Seen by Provider: 12/14/24 20:30 Source: patient and family (Mother) Mode of arrival: ambulatory Limitations: no limitations History of Present Illness HPI narrative: Note: Patient goes by Seras (Sair-S) and preferred pronouns are they/them/theirs. 24-year-old with history POTS and fibromyalgia as well as chronic GI issues presents with report of abdominal pain rectal bleeding. Patient has intermittently abdominal pain since they were 9 years old this episode seems to have begun this summer. It had been associated with episodes hematochezia however today started bright red rectal bleeding mixed in with the stool but dripping into the toilet bowl around the time bowel. Also bled in underwear when not having a bowel movement. Abdominal pain has been throughout but including the epigastric and into bilateral abdomen. No recent mom does report this had previously occurred this summer. Last bowel movement was this morning and soft but formed. Experiences tenesmus after. But recent steroids, anticoagulation or recent NSAIDs other than to Toradol shots. Has seen GI outpatient at [facility] and currently in the process of a work up. This includes a gastric emptying study which is currently scheduled for 12/19/2019 only. Currently on omeprazole and Zofran which they are taking. Obtained a CT abdomen pelvis on 12/12/2024. Pending an EGD colonoscopy currently scheduled for 01/29/2025. Had received a short course Linzess although not yet started this medication. Discussed starting prokinetic agents but currently deferring until gastric emptying study. No fevers or chills but did report feeling on cold. No previous admission for GI bleed. Feels nauseated but no vomiting. Related Data Home Medications ?Medication ?Instructions ?Recorded ?Confirmed ?Last Taken ?Type albuterol sulfate 90 mcg/actuation 1 puff inhalation QID 09/22/19 12/04/24 Unknown History aerosol inhaler hydroxyzine pamoate 25 mg capsule 25 mg PO TID PRN Anxiety 09/22/19 12/04/24 Unknown History levocetirizine 5 mg tablet (Xyzal) 5 mg PO DAILY 09/22/19 12/04/24 Unknown History omeprazole 20 mg tablet,delayed PO BID 09/22/19 12/04/24 Unknown History release gabapentin 100 mg capsule 100 mg PO BID 12/04/24 12/04/24 Unknown History midodrine 2.5 mg tablet 2.5 mg PO ONCE 12/04/24 12/04/24 Unknown History ondansetron HCl 8 mg tablet 8 mg PO BID-TID 12/04/24 12/04/24 Unknown History Allergies Allergy/AdvReac Type Severity Reaction Status Date / Time cefdinir (From Omnicef) Allergy Rash Verified 12/04/24 14:32 clindamycin Allergy Anaphylactic Verified 12/04/24 14:32 Shock nickel Allergy Rash Verified 12/04/24 14:32 [facility] Past Medical History Medical History POTS (postural orthostatic tachycardia syndrome) History of fibromyalgia Social History Social History Smoking status: Never smoker Exam Narrative: GENERAL: Well-appearing, well-nourished, and in no acute distress. HEAD: Normocephalic, atraumatic. EYES: Non injected, non icteric ENT: Nares clear, no rhinorrhea or epistaxis. Gross auditory acuity intact. NECK: Supple. No meningismus. CHEST: Speaking in full sentences. No respiratory distress. HEART: Regular rate and rhythm. . ABDOMEN: Soft, nondistended. No rigidity or guarding. Not peritoneal EXTREMITIES: Normal range of motion. No lower extremity edema. SKIN: Warm, dry, no rash. ANA LUISA: Performed with mother in room. No external hemorrhoids. No large masses. Normal sphinceter tone. FOBT/guiaic faintly positive on 1 window on bedside assay. NEURO: No focal deficits. Alert and oriented. Answering questions. Following commands. Normal speech without aphasia or dysarthria. PSYCH: Normal mood and affect. Course Vital Signs Vital signs: Vital Signs Temperature 98.8 F 12/14/24 18:17 Pulse Rate 66 12/14/24 18:17 Respiratory Rate 18 12/14/24 18:17 Blood Pressure 106/76 12/14/24 18:17 Pulse Oximetry 100 12/14/24 18:17 Oxygen Delivery Room Air 12/14/24 18:17 Temperature 98.8 F 12/14/24 18:17 Pulse Rate 75 12/15/24 01:56 Respiratory Rate 18 12/15/24 01:56 Blood Pressure 131/85 12/15/24 01:25 Pulse Oximetry 100 12/15/24 01:56 Oxygen Delivery Room Air 12/14/24 18:17 MDM - Abdominal Pain MDM Narrative Medical decision making narrative: The patient is a 24 year old (they/them/their pronouns) who comes to the emergency department with rectal bleeding. They noted bright red blood in the toilet. Associated with generalized abdominal pain; previously had hematochezia/melena but not currently. Chronic GI issues, currently being worked up in outpatient setting with GI. Pending gastric emptying study on 12/18/2024 and an EGD and colonoscopy on 01/29/2025. In the ED they are initially afebrile and hemodynamically stable without tachycardia or hypotension. Based on history and physical, suspect lower GI bleed so will go ahead and order CBC, CMP, coagulation studies, lactate, and type and screen. My differential diagnosis at this time is diverticulosis versus angiodysplasia versus Meckel's diverticulum. Colon cancer is also possible. Considered ischemic bowel or anal fissure , IBD/infectious diarrhea, hemorrhoids. CBC with mild abnormalities on the differential however without any anemia. Lactic acid normal. CTA GI bleed protocol is ordered. CMP generally unremarkable, normal renal function. Patient was given IV fluids given they report they to produce a urine sample without this. Zofran and morphine ordered IV. test negative. Urinalysis unremarkable. Phoenix Score (predicts readmission risk in patients with acute lower GI bleeding) Based on age, sex, previous lower GI bleed admission, ANA LUISA findings, HR, SBP, and initial Hgb: 9 points 93?% Probability of safe discharge (absence of rebleeding, blood transfusion, therapeutic intervention, 28 day readmission, or ). Discharge NOT recommended. Consider admission with further workup and resuscitation as necessary. === Nausea returned. Haldol and diphenhydramine ordered in addition to bentyl. Repeat H/H with mild drop in Hgb, 13.2 but still not anemic. Despite their Phoenix score, I did discuss with on-call instructional manager Dr Helton who concurs that their current course of action for work up outpatient seems appropriate. Does not feel admission would be necessary as no clear indication for urgent EGD/colonoscopy. They have not produced any stool for stool studies. UDS normal. Prescribed Bentyl. Advised to keep follow-up appointments and continue taking medications as prescribed. Otherwise stable for discharge. Differential Diagnosis Differential diagnosis: Likely abdominal pain, acute appendicitis, constipation, diverticulitis, endometriosis, gastroenteritis, pancreatitis and small bowel obstruction Medical Records Attestation: I reviewed the patient's medical records. Medical records narrative: CT abd/pelvis 12/12/24 IMPRESSION: 1. No etiology for the patient's symptoms. Reviewed GI clinic note from JAYDON Ordonez 12/04/24 Lab Data Attestation: I reviewed the patient's lab results. 12/15/24 00:55 12/14/24 20:54 Labs: Lab Results 12/14/24 12/14/24 12/14/24 Range/Units 20:54 20:55 20:58 WBC 9.0 (4.5-10.0) K/mm3 RBC 4.76 (4.2-5.4) M/mm3 Hgb 14.0 (12.0-15.0) g/dL Hct 42.1 (37.0-47.0) % MCV 88.4 (80-100) fl MCH 29.4 (26-34) pg MCHC 33.3 (32-36) g/dl RDW 12.3 (11.5-14.5) % Plt Count 360 (150-375) k/mm3 MPV 9.4 (7.4-10.4) fl Immature Gran % (Auto) 0.4 (0-0.5) % Neut % (Auto) 53.5 (45.5-73.1) % Lymph % (Auto) 33.6 (18.3-44.2) % Sevier % (Auto) 7.2 (2.6-8.5) % Eos % (Auto) 4.0 (0-4.4) % Baso % (Auto) 1.3 H (0.2-1.2) % Lymph # (Auto) 3.02 (0.9-3.2) K/mm3 Sevier # (Auto) 0.7 H (0.1-0.6) K/mm3 Eos # (Auto) 0.4 H (0-0.3) K/mm3 Baso # (Auto) 0.1 (0.0-0.1) K/mm3 Abs Immat Gran (auto) 0.04 H (0.00-0.031) K/mm3 Absolute Neuts (auto) 4.8 (1.3-6.7) K/mm3 Absolute Nucleated RBC 0.000 (0.0-0.012) K/mm3 Nucleated RBC % 0.0 (0.0-0.2) % PT 12.9 (11.1-14.7) Seconds INR 1.0 APTT 26.6 (22.3-36.8) Seconds Sodium 138 (137-145) mmol/L Potassium 3.6 (3.4-5.0) mmol/L Chloride 100 (98-107) mmol/L Carbon Dioxide 29 (22-30) mmol/L Anion Gap 9 (4-12) mmol/L BUN 8 D (7-17) mg/dL Creatinine 0.88 (0.7-1.0) mg/dL Estim Creat Clear Calc 79 ml/min Estimated GFR > 60 (59 - ) Glucose 82 (65-110) mg/dL Lactic Acid 0.8 (0.7-2.0) mmol/L Calcium 9.8 (8.4-10.2) mg/dL Total Bilirubin 0.5 (0.2-1.3) mg/dL AST 27 (14-36) U/L ALT 20 (6-35) U/L Alkaline Phosphatase 89 (38-126) U/L Total Protein 8.7 H (6.3-8.2) g/dL Albumin 4.8 (3.5-5.1) g/dL Urine Color (Yellow) Urine Appearance (Clear) Urine pH (5.0-9.0) Ur Specific [place] (1.001-1.035) Urine Protein (Negative) mg/dL Urine Glucose (UA) (Negative) mg/dL Urine Ketones (Negative) mg/dL Ur Blood (Man) (Negative) Urine Nitrate (Negative) Urine Bilirubin (Negative) Urine Urobilinogen (<2.0) mg/dL Leukocyte Esterase Rfl (Negative) LUI/UL POC Urine HCG, Qual (Negative) Urine Opiates Screen (Negative) Urine Methadone Screen (Negative) Ur Barbiturates Screen (Negative) Ur Phencyclidine Scrn (Negative) Ur Amphetamine Screen (Negative) U Benzodiazepines Scrn (Negative) Urine Cocaine Screen (Negative) U Cannabinoids Screen (Negative) Blood Type A Positive Antibody Screen Negative 12/14/24 12/15/24 Range/Units 22:15 00:55 WBC (4.5-10.0) K/mm3 RBC (4.2-5.4) M/mm3 Hgb 13.2 (12.0-15.0) g/dL Hct 39.7 (37.0-47.0) % MCV (80-100) fl MCH (26-34) pg MCHC (32-36) g/dl RDW (11.5-14.5) % Plt Count (150-375) k/mm3 MPV (7.4-10.4) fl Immature Gran % (Auto) (0-0.5) % Neut % (Auto) (45.5-73.1) % Lymph % (Auto) (18.3-44.2) % Sevier % (Auto) (2.6-8.5) % Eos % (Auto) (0-4.4) % Baso % (Auto) (0.2-1.2) % Lymph # (Auto) (0.9-3.2) K/mm3 Sevier # (Auto) (0.1-0.6) K/mm3 Eos # (Auto) (0-0.3) K/mm3 Baso # (Auto) (0.0-0.1) K/mm3 Abs Immat Gran (auto) (0.00-0.031) K/mm3 Absolute Neuts (auto) (1.3-6.7) K/mm3 Absolute Nucleated RBC (0.0-0.012) K/mm3 Nucleated RBC % (0.0-0.2) % PT (11.1-14.7) Seconds INR APTT (22.3-36.8) Seconds Sodium (137-145) mmol/L Potassium (3.4-5.0) mmol/L Chloride (98-107) mmol/L Carbon Dioxide (22-30) mmol/L Anion Gap (4-12) mmol/L BUN (7-17) mg/dL Creatinine (0.7-1.0) mg/dL Estim Creat Clear Calc ml/min Estimated GFR (59 - ) Glucose (65-110) mg/dL Lactic Acid (0.7-2.0) mmol/L Calcium (8.4-10.2) mg/dL Total Bilirubin (0.2-1.3) mg/dL AST (14-36) U/L ALT (6-35) U/L Alkaline Phosphatase (38-126) U/L Total Protein (6.3-8.2) g/dL Albumin (3.5-5.1) g/dL Urine Color Yellow (Yellow) Urine Appearance Clear (Clear) Urine pH 6.5 (5.0-9.0) Ur Specific [place] 1.014 (1.001-1.035) Urine Protein Negative (Negative) mg/dL Urine Glucose (UA) Negative (Negative) mg/dL Urine Ketones Negative (Negative) mg/dL Ur Blood (Man) Negative (Negative) Urine Nitrate Negative (Negative) Urine Bilirubin Negative (Negative) Urine Urobilinogen 0.2 (<2.0) mg/dL Leukocyte Esterase Rfl Negative (Negative) LUI/UL POC Urine HCG, Qual Negative (Negative) Urine Opiates Screen Negative (Negative) Urine Methadone Screen Negative (Negative) Ur Barbiturates Screen Negative (Negative) Ur Phencyclidine Scrn Negative (Negative) Ur Amphetamine Screen Negative (Negative) U Benzodiazepines Scrn Negative (Negative) Urine Cocaine Screen Negative (Negative) U Cannabinoids Screen Negative (Negative) Blood Type Antibody Screen Imaging Data Radiologist's impression: ITS Impressions Abdomen/Pelvis CTA 12/15/24 08:36 IMPRESSION: 1. No etiology for the patient's symptoms. CTA Abd/pelvis Stat Rad: No evidence of acute GI bleed on this limited single phase study. No acute intra-abdominal abnormality. No bowel obstruction or inflammation. Normal appendix. No hydronephrosis or renal calculus. Discharge Plan Discharge Clinical Impression: Abdominal pain, Rectal bleeding Patient Disposition: Home Condition: Stable Instructions: Antibiotic Form, Rectal Bleeding (ED), Abdominal Pain (ED) Additional Instructions: Despite the blood in your stool previously and now blood dripping, you were not anemic (red blood cells normal) on initial labs and the one tested 4 hours later. CTA GI bleed protocol also did not identify concerning cause. 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 Follow up with GI. You can trial the dicyclomine/Bentyl which can help with abdominal pain cramping as it works on the smooth muscle of the GI tract. Continue taking all of your other medications as prescribed. Return to the emergency department immediately if the pain worsens, you develop fever, persistent uncontrolled vomiting, or for any new symptoms or concerns. Patient Language: Wolof Prescriptions: New dicyclomine 10 mg capsule 10 mg PO BID PRN (Reason: abdominal pain) Qty: 20 0RF Rx Instructions: may substitute for tablets instead if necessary No Action gabapentin 100 mg capsule 100 mg PO BID ondansetron HCl 8 mg tablet 8 mg PO BID-TID midodrine 2.5 mg tablet 2.5 mg PO ONCE Rx Instructions: do not give last dose of day after 6PM or within 4 hrs of bedtime levocetirizine [Xyzal] 5 mg Tablet 5 mg PO DAILY omeprazole 20 mg Tablet,Delayed Release (Dr/Ec) PO BID albuterol sulfate 90 mcg/actuation Hfa Aerosol Inhaler 1 puff INHALATION QID hydroxyzine pamoate 25 mg Capsule 25 mg PO TID PRN (Reason: Anxiety) ondansetron 4 mg tablet,disintegrating 4 mg PO Q8H PRN (Reason: nausea and vomiting) Qty: 10 0RF ondansetron HCl 8 mg tablet 8 mg PO Q6H PRN (Reason: nausea and vomiting) 30 Days Qty: 90 0RF Trulance 3 mg tablet 3 mg PO DAILY Qty: 90 0RF Follow-up/Referrals: Madison,Aniya Carreno APN [Primary Care Provider, Unknown] Yanique Ordonez APRN [Advanced Practice Nurse, Gastroenterology] Jero Helton MD [Physician, Gastroenterology] Stand Alone Forms: Work/School Release IP Time of Disposition: 01:46
--- OUTSIDE RECORDS SUMMARY | 2024-12-14 20:37 | XMS_ITS | Clinical Summary ---
Author Organization [facility] Address [facility] access hospital[address] [place] [address] Care Team Providers Care Phlebotomy Supervisor Name Role Phone MadisonJohnathonAniyaterrie Alvarez TELEPHONE OPERATORS SUPERVISOR Primary Care Provider Allergies Active Allergy Reactions [...] 6 (six) hours as needed Active cranberry ggqd-P-lnruhcvl coag 250-30-50 ez-ht-dfqzizg tablet Take by mouth Active magnesium carbonate [...] Team Description 12/12/2024 11:00 AM CDT Therapy [facility] [place] [address] Carole Hughes, PT Dysmenorrhea, unspecified (Primary Dx); Pelvic and perineal pain 12/11/2024 2:00 PM CDT - 12/11/2024 11:59 PM CDT Hospital Encounter [facility] - Ultrasound [address] [place] [address] Dysmenorrhea Discharge Disposition: Discharge to home or self care 12/01/2024 4:45 PM CDT Office Visit [facility] at [address] [address] Brenda Laguerre NP Nausea (Primary Dx) 10/14/2024 10:30 AM CDT Therapy [facility] [place] [address] [address] Carole Hughes, PT Dysmenorrhea, unspecified (Primary Dx); Pelvic and perineal pain 10/14/2024 Plan of Care Documentation [facility] [place] [address] [address] 10/03/2024 11:00 AM CDT Therapy [facility] [place] [address] Carole Hughes, PT Dysmenorrhea, unspecified (Primary Dx); Pelvic and perineal pain 09/26/2024 11:00 AM CDT Therapy [facility] [place] [address] Carole Hughes, PT Dysmenorrhea, unspecified (Primary Dx); Pelvic and perineal pain 09/25/2024 4:55 PM CDT - 09/25/2024 11:59 PM CDT Hospital Encounter [address] [address] Well woman exam Discharge Disposition: Discharge to home or self care 09/25/2024 10:15 AM CDT Office Visit [facility] [address] [place] [address] 3rd Floor [address] [place] [address] Berto Baker NP Dysmenorrhea (Primary Dx); Atypical squamous cells of undetermined significance (ASC-US) on cervical Pap smear; Well woman exam 09/19/2024 11:00 AM CDT Therapy [facility] [address] [place] [address] Carole Hughes PT Dysmenorrhea, unspecified (Primary Dx); [...] CDT Gender Identity Non-Binary 04/27/2022 7:54 AM HEMATOLOGY SPECIALIST Sexual Orientation Queer 09/06/2024 4: 48 PM [...] (Molecular component) (09/25/2024 12:14 PM CDT) Pathologist [facility] ThinPrep processing (Molecular component) Specimen received for processing. [facility] Endocervical 09/25/2024 12:1 4 PM CDT 09/26/2024 8:37 AM CDT Berto Baker NP LAB BODY FLUIDS AND STOOLS O RDERABLES Final Result [facility] Department [place] [address] [facility] * Pap Only (Cytology Component) (09/25/2024 12:14 PM CDT) Thin prep (Pap test) 09/25/2024 12:14 PM CDT 09/25/2024 4:55 PM CDT Narrative PATHOLOGY [facility] - 10/01/2024 4:20 PM CDT EPIC results best viewed via link to PDF [facility] Surgical Pathology [facility] [place] [address] Note to Patients: This report may contain [...] Gender: F : 2000 (Age: 23) Address: [address] [place] [address] Hospital #: [id number] Service: [facility] Location: Patient Type: [facility] Ref Lab Serie Taken: 09/25/2024 Received: 09/25/2024 [...] clinical information and biopsy results as indicated. [facility] Clinical Laboratory Improvement Amendments (CLIA) mandate that cytologic and histologic results be correlated for laboratory quality engineer medical device & improvement standards. FOR ALL HIGH-GRADE CASES [...] determined by the Surgical Pathology Department at [facility] as part of an ongoing manager quality program and in compliance with federally mandated [...] determined by the Surgical Pathology Department of [facility]. It has not been cleared or approved by the U. S. Food and Drug Administration. Berto Baker NP LAB CYTOLOGY ORDERABLES Sarah l Result PATHOLOGY [facility] 3rd Floor [place], [place] [phone] from Last 3 Months Insurance [facility] Care Teams Phlebotomy Supervisor Relationship Specialty Start Date End Date Aniya Wallace NP [address] [place] [address] PCP - General Nurse Practitioner 09/27/21
--- OUTSIDE RECORDS SUMMARY | 2024-12-14 20:37 | XMS_ITS | Clinical Summary ---
Author Organization [facility] Address [address] [place] [address] Care Team Providers Care Cutting Machine Operator Helper Name Role Phone Unavailable Primary Care [...] (#1) 2024 Insurance [employer] [address] [place] [address]
--- OUTSIDE RECORDS SUMMARY | 2024-12-14 20:37 | XMS_ITS | Clinical Summary ---
Author Organization [facility] Address [address] [place] [address] Phone Care Team Providers Care Wire Loop Machine Operator Name Role Phone Aniya Wallace MADDIE CARRERA Primary Care Provider [phone] Medications atomoxetine (Strattera) 60 MG Capsule Take [...] Team Description 12/10/2024 4:30 PM CDT [facility] [address] [place] [address] Kimberly Armstrong, EQUITY DIRECTOR Major depressive disorder, single episode, moderate (HCC) (Primary Dx) Discharge Disposition: Discharged to home or Selfcare 12/08/2024 Travel 12/03/2024 3:00 PM CDT [facility] [place] [address] Kimberly Armstrong LCPC Major depressive disorder, single episode, moderate (HCC) (Primary Dx) Discharge Disposition: Discharged to home or Selfcare 12/02/2024 Travel 12/01/2024 Travel 11/26/2024 3:00 PM CDT Telemedicine [facility] [address] [facility] [place] [address] Kimberly Armstrong LCPC Major depressive disorder, single episode, moderate (HCC) (Primary Dx) Discharge Disposition: Discharged to home or Selfcare 11/24/2024 Travel 11/18/2024 Travel 11/12/2024 3:00 PM CDT Telemedicine [facility] [address] [place] [phone] Kimberly Armstrong LCPC Autism spectrum disorder, without accompanying intellectual or language impairment, requiring support (level 1) (Primary Dx); PTSD (post-traumatic stress disorder) Discharge Disposition: Discharged to home or Selfcare 11/10/2024 Travel 10/30/2024 9:15 AM CDT Outpatient Clinic Visit [facility] [address] [facility] [address] [place] [address] Kimberly Armstrong LCPC Obsessive compulsive disorder, with good or fair insight (Primary Dx); Major depressive disorder, single episode, moderate (HCC); Autism spectrum disorder, without accompanying intellectual or language impairment, requiring support (level 1); Attention deficit hyperactivity disorder, inattentive type; PTSD (post-traumatic stress disorder) Discharge Disposition: Discharged to home or Selfcare 10/29/2024 Travel 10/23/2024 9:00 AM CDT Outpatient Clinic Visit [facility] [address] [place] [address] Juancho Rodriguez, PSYD Autism spectrum disorder, without accompanying intellectual or language impairment, requiring support (level 1) (Primary Dx); Obsessive compulsive disorder, with good or fair insight; Excoriation (skin-picking) disorder; Major depressive disorder, single episode, moderate (HCC); Attention deficit hyperactivity disorder, inattentive type Discharge Disposition: Discharged to home or Selfcare 10/21/2024 Travel 10/02/2024 8:00 AM CDT Outpatient Clinic Visit [facility] [address] [place] [address] Juancho Rodriguez PSYD Obsessive compulsive disorder, with [...] Info) Description 12/24/2024 3:00 PM CDT Telemedicine [facility] [address] [place] [address] Kimberly Armstrong, [facility] [address] [place] [address] Discharge Disposition: Discharged to home or Selfcare 01/13/2025 4:00 PM CREDIT CONSULTANT Telemedicine [facility] [address] [place] [phone] Kimberly Armstrong LCPC [address] [place] [address] Discharge Disposition: Discharged to home or Selfcare [...] Ready to change Department associated with goal: [facility] Steps to achieve goal: [...] cope with anxiety and depression. Insurance MEDICAID [facility] Care Teams Wire Loop Machine Operator Relationship Specialty Start Date End Date Aniya Wallace APRN, CNP PCP - General Family Medicine 08/15/24
[2024-12-14 21:01] LABS: Hematocrit 42.1 % (37.0-47.0); Hemoglobin 14.0 g/dL (12.0-15.0); Immature Granulocyte Percent A 0.4 % (0-0.5); Lymphocytes Absolute Auto 3.02 K/mm3 (0.9-3.2); Mean Corpuscular HGB Conc 33.3 g/dl (32-36); Mean Corpuscular Hemoglobin 29.4 pg (26-34); Mean Corpuscular Volume 88.4 fl (80-100); Nucleated Red Blood Cells Absolute Auto 0.000 K/mm3 (0.0-0.012); Nucleated Red Blood Cells Perc 0.0 % (0.0-0.2); Platelet Count Result 360 k/mm3 (150-375); Red Blood Count 4.76 M/mm3 (4.2-5.4); White Blood Count 9.0 K/mm3 (4.5-10.0)
[2024-12-14 21:13] LABS: INR 1.0; Partial Thromboplastin Time 26.6 Seconds (22.3-36.8); Prothrombin Time 12.9 Seconds (11.1-14.7)
[2024-12-14] MEDS: SODIUM CHLORIDE 0.9% IV 1,000 ML 999 ML IV CONT (21:14)
[2024-12-14 21:15] LABS: Alanine Aminotransferase 20 U/L (6-35); Albumin Level 4.8 g/dL (3.5-5.1); Alkaline Phosphatase 89 U/L (38-126); Anion Gap 9 mmol/L (4-12); Aspartate Amino Transferase 27 U/L (14-36); Bilirubin,Total 0.5 mg/dL (0.2-1.3); Blood Urea Nitrogen 8 mg/dL (7-17); Calcium 9.8 mg/dL (8.4-10.2); Carbon Dioxide 29 mmol/L (22-30); Chloride 100 mmol/L (98-107); Estimated CRCL calculation 79 ml/min; Estimated Glomerular Filt Rate > 60; Glucose 82 mg/dL (65-110); Potassium 3.6 mmol/L (3.4-5.0); Sodium 138 mmol/L (137-145); Total Protein 8.7 g/dL (6.3-8.2)
--- NOTE | 2024-12-14 21:16 | PC.NURSE ---
Patient reports that she needs fluids to urinate since she went while waiting in [place]. Was adamant that she was not -haven't had sex since I was 17-she and family made aware of policy. Refusing catheter for urine collection
[2024-12-14 22:00] VITALS: BP 109/72; PULSE 85; RESP 23; O2SAT 100
[2024-12-14] MEDS: ONDANSETRON INJ 4 MG/2 ML VIAL IV PUSH (22:09)
[2024-12-14] MEDS: MORPHINE SULFATE (*CRX) 4 MG/ML INJ 2 MG IV PUSH (22:09)
[2024-12-14 22:15] VITALS: BP 115/83; PULSE 72; RESP 15; O2SAT 100
[2024-12-14 22:16] LABS: BEDSIDEPREGUCG Negative (Negative)
[2024-12-14 22:20] VITALS: BP 115/83; PULSE 68; RESP 14; O2SAT 100
[2024-12-14 22:23] LABS: Add Urine Microscopic? NO; Appearance Urine Clear (Clear); Glucose Urine UA Negative (Negative); Leukocyte Esterase Ur Negative LEU/UL (Negative); Nitrate Urine Negative (Negative); Specific Grav Ur 1.014 (1.001-1.035)
[2024-12-14 23:42] VITALS: BP 129/88; PULSE 70; RESP 18; O2SAT 97
[2024-12-15 01:01] LABS: Hematocrit 39.7 % (37.0-47.0); Hemoglobin 13.2 g/dL (12.0-15.0)
[2024-12-15] MEDS: DICYCLOMINE HCL 10 MG CAPSULE PO (01:15)
[2024-12-15] MEDS: HALOPERIDOL LACTATE 5 MG/ML VIAL 2.5 MG IV PUSH (01:15)
[2024-12-15 01:25] VITALS: BP 131/85; PULSE 68; RESP 12; O2SAT 98
[2024-12-15 01:35] LABS: Cannabinoid Screen Urine Negative (Negative)
[2024-12-15 01:56] VITALS: PULSE 75; RESP 18; O2SAT 100
== END 2024-12-15 01:57 | disposition home or self-care (01) ==
PROVIDERS: Emergency Provider Student in an Organized Health Care Education/Training Program; PCP Nurse Practitioner Family
DX: R10.13 Epigastric pain (principal); R10.32 Left lower quadrant pain; R10.31 Right lower quadrant pain; M79.7 Fibromyalgia; G90.A Postural orthostatic tachycardia syndrome [POTS]
CPT/HCPCS: 36415; 74174; 80053; 80307; 81003; 81025; 83605; 85014; 85018; 85025; 85610; 85730; 86850; 86900; 86901; 96361; 96374; 96375; 99284; A9270; J1200; J1630; J2270; J2405; J7030; Q9967

== ENCOUNTER 2024-12-18 08:05 | Outpatient (CLI) | payer OTHER, SELFPAY ==
--- NOTE | ~2024-12-18 | NM_ITS ---
EXAM: NM gastric emptying study DATE: 12/18/2024 12:42 INDICATION: Gastroparesis. TECHNIQUE: A gastric emptying study was performed using the methodology of Tomi WALTON, et al. J Nucl Med 2007; 48:568-572. The patient was given a meal consisting of 2 scrambled eggs labeled with 0.944 mCi Tc-99m sulfur colloid, 2 slices of toast, two packages of jam, and approximately 120 mL of water. Simultaneous anterior and posterior 1-min images of the abdomen were obtained with the patient supine at multiple time points over a total period of 4 hours. The geometric mean of anterior and posterior views was determined, and the percentage retention was calculated for each time point. COMPARISON: None. FINDINGS: Gastric retention of the radiotracer-labeled meal was 63%, 40%, and 17% at the 1-hour, 2-hour, and 4-hour time points, respectively. With this technique, apparent rapid gastric emptying is suggested by <30% gastric retention at 1 hour. Delayed gastric emptying is defined by gastric retention of >90% at 1 hour, >60% retention at 2 hours, or >10% retention at 4 hours. IMPRESSION: 1. Delayed gastric emptying. Reviewed, dictated and finalized at location E.
== END 2024-12-18 08:06 | disposition home or self-care (01) ==
PROVIDERS: PCP Nurse Practitioner Family; Visit Provider Nurse Practitioner
DX: K30 Functional dyspepsia (principal)
CPT/HCPCS: 78264; A9541

== ENCOUNTER 2025-01-29 00:26 | Day surgery (SDC) | payer OTHER, SELFPAY ==
[2025-01-13 15:18] VITALS: BMI 25.7
--- OUTSIDE RECORDS SUMMARY | 2025-01-29 05:25 | XMS_ITS | Clinical Summary ---
Author Organization [facility] Address [facility] [place] [address] Care Team Providers Care Parimutuel Clerk Name Role Phone MadisonAniya Kim STEEL SHOT HEADER OPERATOR Primary Care Provider [phone] Allergies Active Allergy Reactions Criticality Noted Date Comments Adhesive Rash,Other (See comments) Medium 11/09/2021 adhesive Diphenhydramine Agitation Low 12/18/2024 Cefdinir Other (See comments),Vomiting,Rash Medium 11/24/2021 Severe acid reflux Clindamycin Angioedema,Unknown,A naph ylaxis High 11/09/2021 clindamycin Doxycycline Other (See comments) 08/16/2024 Pt unsure - possibly throat swelling Nickel Hives,Rash Medium 11/09/2021 Nystatin Rash,Other (See comments) Medium 11/09/2021 nystatin Medications acetaminophen-aspir in-caffeine (EXCEDRIN MIGRAINE) 250-250-65 mg per tablet Take 1 tablet by mouth every 6 (six) hours as needed Active cranberry vmsg-L-nxrqiuxf coag 250-30-50 bg-an-cxuqqyb tablet Take by mouth Active magnesium carbonate (MAGONATE) liquid (54 mg of elemental magnesium/5 mL) Acti ve cholecalciferol (Vitamin D3) 2000 unit capsule Active ELDERBERRY FRUIT ORAL Active thymol/chlorophylli n (CHLOROPHYLL ORAL) Active L. acidophilus/dig enz cmb 5 (PROBIOTIC-DIGESTIV E ENZYMES ORAL) Acti ve albuterol HFA (PROVENTIL HFA,VENTOLIN HFA,PROAIR HFA) 90 mcg/actuation inhaler INHALE 2 PUFFS BY MOUTH EVERY 6 HOURS 3 Active midodrine (PROAMATINE) 2.5 mg tablet 5 Active propranolol LA (INDERAL LA) 120 mg 24 hr capsule Take by mouth daily Active sodium chloride 1,000 mg tablet Take 1 tablet (1 g total) by mouth 2 (two) times a day 5 Active hydrOXYzine (ATARAX) 10 mg tablet Take 1 tablet (10 mg total) by mouth every 6 (six) hours as needed Active Slynd tablet tablet Take 1 each (4 mg total) by mouth daily 5 Active gabapentin (NEURONTIN) 100 mg capsule Take 1 capsule (100 mg total) by mouth 2 (two) times a day 5 Active Vyvanse 10 mg capsule Take 1 capsule (10 mg total) by mouth daily 5 Active ondansetron ODT (ZOFRAN-ODT) 4 mg disintegrating tabletIndications:N ausea Take 1 tablet (4 mg total) by mouth every 8 (eight) hours as needed for nausea or vomiting 10 tablet 5 Active lidocaine viscous (XYLOCAINE) 2 % solutionIndications :Sore throat Apply 10 mL to the mouth or throat every 6 (six) hours as needed (sore throat) May mix with 30 ml of Mylanta 100 mL Active promethazine-DM (PROMETHAZINE-DM) 1.25-3 mg/mL syrupIndications:Ac [place] cough Take 5 mL by mouth every 4 (four) hours as needed for cough 120 mL Active Active Problems Problem Noted Date Diagnosed Date Abdominal pain 12/18/2024 Abdominal pain, LUQ 12/18/2024 Acute cervical myofascial strain 12/18/2024 Acute lumbar myofascial strain 12/18/2024 Bilateral contusion of ribs 12/18/2024 Gastritis 12/18/2024 GERD (gastroesophageal reflux disease) IBS (irritable colon syndrome) 12/18/2024 Nausea 12/18/2024 Periumbilical pain 12/18/2024 Rectal bleeding 12/18/2024 Abdominal bloating 12/18/2024 RLQ abdominal mass 12/18/2024 Abnormal uterine bleeding (AUB) 12/18/2024 Attention deficit hyperactivity disorder, inatte ntive type 10/30/2024 Autistic disorder, residual state 10/30/2024 Major depressive disorder, single episode, moder ate 10/30/2024 Unspecified neurodevelopmental disorder 08/16/19 Dysmenorrhea 05/23/2024 Irregular periods 05/23/2024 Multiple joint pain 11/09/2022 Tachycardia 11/09/2022 Gender dysphoria 04/27/2022 Anxiety disorder 01/23/2022 Seizure-like activity 11/09/2021 Fibromyalgia 11/09/2021 Abnormal gait 10/12/2021 Hematochezia 10/12/2021 Posttraumatic stress disorder 10/12/2021 Acne 07/12/2021 Mood disorder 07/12/2021 Encounters Date Type Department Care Team Description 01/13/2025 2:00 PM PANTOGRAPH II ENGRAVER Therapy [facility] Physical Therapy [facility] [place] [address] Carole Hughes, PT Dysmenorrhea; Pelvic and perineal pain; Dysmenorrhea, unspecified 01/13/2025 Plan of Care Documentation [facility] Physical Therapy [facility] [place] [address] 01/10/2025 Results Follow-Up [facility] Convenient Care at [address] [phone] Radha Mathis, SAUD Throat culture Throat 01/09/2025 6:01 PM CDT - 01/09/2025 11:59 PM CDT Hospital Encounter [facility] [address] [place] [address] Sore throat Discharge Disposition: Discharge to home or self care 01/09/2025 5:15 PM CDT Office Visit [facility] at [address] [phone] Radha Mathis, SAUD Sore throat (Primary Dx); Acute cough 01/02/2025 Telephone [facility] Medicine Minimally Invasive Surgery [address] [place] [address] 7th [address] [place] [phone] Macey Rivero MD 01/01/[address] [facility] Minimally Invasive Surgery [address] [place] [address] 7th Floor [address] [place] [address] Macey Rivero MD 12/31/[address] [facility] Minimally Invasive Surgery [address] [place] [address] 7th Floor [address] [place] [address] Macey Rivero MD 12/30/2024 Orders Only [address] [address] Selin Ham MD Abnormal uterine bleeding (Primary Dx) 12/26/2024 Orders Only [address] [phone] Selin Ham MD Abnormal uterine bleeding (Primary Dx) 12/18/2024 2:45 PM CDT Office [facility] [address] [place] [address] 3rd Floor [address] [place] [phone] Dysmenorrhea (Primary Dx); Abnormal uterine bleeding (AUB); High-tone pelvic floor dysfunction 12/12/2024 11:00 AM CDT Therapy [facility] [place] [address] [place] [address] Carole Hughes PT Dysmenorrhea, unspecified (Primary Dx); Pelvic and perineal pain 12/11/2024 2:00 PM CDT - 12/11/2024 11:59 PM CDT Hospital Encounter [facility] Outpatient Health - Ultrasound [address] [place] [address] Dysmenorrhea Discharge Disposition: Discharge to home or self care 12/01/2024 4:45 PM CDT Office Visit [facility] Care at [address] [address] Brenda Laguerre NP Nausea (Primary Dx) from Last 3 Months Immunizations Immunization Administration [...] the money to buy more. Never true 12/19/19 25 Within the past 12 months, t he food you bought just didn't last and you didn't have money to get more. Never true 12/18/2024 Comments No Sex and Gender Information Value Date Recorded Sex Assigned at Not on file Legal Sex Female 12:50 PM CDT Gender Identity Non-Binary 04/27/2022 7:54 AM PANTOGRAPH II ENGRAVER Sexual Orientation Queer 09/06/2024 4: 48 PM CDT Obstetrics History Para Term AB IAB SAB Ectopic Multiple Livin g Live Births 0 0 0 0 0 0 0 0 0 0 0 Last Filed Vital Signs Vital Sign Reading Time Taken Comments Blood Pressure 133/87 01/09/2025 5:06 PM CDT Pulse 65 01/09/2025 5:06 PM CDT Temperature 37.1 C (98.7 F) 01/09/2025 5:06 PM CDT Respiratory Rate 20 01/09/2025 5:06 PM CDT Oxygen Saturation 99% 01/09/2025 5:06 PM CDT Inhaled Oxygen Concentration - - Weight 70.3 kg (155 lb) 01/09/2025 5:06 PM CDT Height 165.1 cm (5' 5) 12/18/2024 2:54 PM CDT Body Mass Index 25.79 12/18/2024 2:54 PM CDT Plan of Treatment Upcoming Encounters Date Type Department Care Team (Late st Contact Info) Description 02/28/2025 4:45 PM PANTOGRAPH II ENGRAVER Hospital Encounter [facility] Operating Room 1 [place] [phone] Macey Rivero MD [address] [facility] [phone] [place], [place] [id number] 02/28/2025 4:45 PM PANTOGRAPH II ENGRAVER - 02/28/2025 6:18 PM PANTOGRAPH II ENGRAVER Surgery [facility] Operating Room 1 [place] [phone] Macey Rivero MD [address] [facility] [phone] [place], [place] [id number] EXAM UNDER ANESTHESIA Scheduled Procedures Name Priority Associated Diagnoses Date/Ti me EXAM UNDER ANESTHESIA Abnormal uterine bleeding (AUB) 02/28/2025 4:45 PM PANTOGRAPH II ENGRAVER BIOPSY - ENDOMETRIUM Abnormal uterine bleeding (AUB) 02/28/2025 4:45 PM PANTOGRAPH II ENGRAVER Health Maintenance Due Date Last Done Comments Depression Screening 2002 Hepatitis C Screening 2002 Varicella Vaccines (1 of 2 - 13+ 2-dose series) 11/20/2015 HPV Vaccines (1 - 3-dose series) 2017 Meningococcal B Vaccine (1 of 2 - Standard) 2018 Hepatitis B Screening 2020 Regular Well Visit/Exam 18-64 2020 Covid-19 Vaccine ( - 2024- season) 2024 05/23/2024, 02/15/2023, 03/03/2021, Additional history exists Influenza Vaccine (#1) 2024 03/11/2024, 2022 Cervical Cancer Screening 09/25/2025 09/25/2024 DTaP/Tdap/Td Vaccine (2 - Td or Tdap) 05/23/2034 05/23/2024 Pneumococcal vaccine <65 Aged Out No longer eligible based on patient's age to complete this topic Procedures Procedure Name Priority Date/Time Associated Diagnosis Comments THROAT CULTURE Routine 01/09/2025 6:01 PM CDT Sore throat POCT RAPID STREP Routine 01/09/2025 5:28 PM CDT Sore throat POC INFLUENZA A/B, COVID-19 ANTIGEN Routine 01/09/2025 5:28 PM CDT Acute cough IRON PROFILE W/ IBC Routine 01/08/2025 1 2:17 PM CDT Abnormal uterine bleeding FERRITIN Routine 01/08/2025 12:17 PM CDT Abnormal uterine bleeding CBC WITH AUTO DIFFERENTIAL Routine 01/08/2025 12:15 PM CDT Abnormal uterine bleeding US PELVIS COMPLETE Schedule Routine, Read Routine (OP Routine) 12/11/2024 2:00 PM CDT Dysmenorrhea PAP ONLY Routine 09/25/2024 12:14 PM CDT Well woman exam from Last 3 Months or Most Recently Relevant to Health Maintenance Results * Throat culture Throat (01/09/2025 6:01 PM CDT) Report Final Report: No growth of pathogens. Comment:Testing performed by : [facility], [address] [place] [address] Throat 01/09/2025 6:01 PM CDT 01/10/2025 12:41 AM CDT Narrative [facility] - 01/10/2025 7:26 PM CDT Testing performed by [facility] Microbiology Laboratory ([phone]). us Radha Mathis NP LAB MICROBIOLOGY - GENERAL ORDERABLES Final Result [facility] [address] [address] Department [place] [address] * POC Influenza A/B, COVID-19 antigen (01/09/2025 5:28 PM CDT) [facility] Influenza A Ag, POC Negative Negative [facility] Influenza B Ag, POC Negative Negative [facility] COVID-19 Ag POC Presumptive Negative Presumptive Negative, Invalid [facility] Nasal 01/09/2025 5:28 PM CDT Radha Mathis STEEL SHOT HEADER OPERATOR POINT OF CARE TEST ORDERAB LES Final Result [facility] [address] [place] [address] * POCT rapid strep A (01/09/2025 5:28 PM CDT) [facility] Rapid Strep A, POC Negative Negative Swab 01/09/2025 5:28 PM CDT Radha Mathis STEEL SHOT HEADER OPERATOR POINT OF CARE TEST ORDERAB LES Final Result * Iron profile w/ IBC (01/08/2025 12:17 PM CDT) [facility] Iron Bind.Cap.(TIBC) 329 250 - 450 ug/dL [facility] - 01 UIBC 264 131 - 425 ug/dL [facility] - 01 Iron 65 27 - 159 ug/dL [facility] - 01 Iron saturation 20 15 - 55 % [facility] - 01 Blood 01/08/2025 12:1 7 PM CDT 01/08/2025 Narrative [facility] - 01/09/2025 8:12 AM CDT Performed at: 01 - [facility] [address] [id number] Landscape Supervisor: Marcos Crowe PhD, Phone: [phone] Selin Ham MD LAB BLOOD ORDERABLES Fi nal Result [facility] - 01 * Ferritin (01/08/2025 12:17 PM CDT) [facility] Ferritin 36 15 - 150 ng/mL [facility] - 01 Blood 01/08/2025 12:1 7 PM CDT 01/08/2025 Narrative [facility] - 01/09/2025 8:12 AM CDT Performed at: - [address] [id number] Landscape Supervisor: Marcos Crowe PhD, Phone: [phone] us Selin Hma MD LAB BLOOD ORDERABLES Fi nal Result [facility] - 01 * (ABNORMAL) CBC with auto differential (01/08/2025 12:15 PM CDT) [facility] WBC 10.8 3.4 - 10.8 x10E3/uL [facility] - 01 RBC 4.28 3.77 - 5.28 x10E6/uL [facility] - 01 Hgb 12.8 11.1 - 15.9 g/dL [facility] - 01 Hct 39.5 34.0 - 46.6 % [facility] - 01 MCV 92 79 - 97 fL [facility] - 01 MCH 29.9 26.6 - 33.0 pg [facility] - 01 MCHC 32.4 31.5 - 35.7 g/dL [facility] - 01 Rdw 12.2 11.7 - 15.4 % [facility] - 01 Platelets 358 150 - 450 x10E3/uL [facility] - 01 Neutrophils pct 72 Not Estab. % [facility] - 01 Lymphs pct 18 Not Estab. % [facility] - 01 Monocytes pct 7 Not Estab. % [facility] - 01 Eosinophils pct 2 Not Estab. % [facility] - 01 Basophil pct 1 Not Estab. % [facility] - 01 Neutrophil abs 7.7(H) 1.4 - 7.0 x10E3/uL [facility] - 01 Lymphs (Absolute) 1.9 0.7 - 3.1 x10E3/uL [facility] - 01 Monocyte abs 0.7 0.1 - 0.9 x10E3/uL [facility] - 01 Eosinophils, abs 0.3 0.0 - 0.4 x10E3/uL [facility] - 01 Basophils, abs 0.1 0.0 - 0.2 x10E3/uL [facility] - 01 Immature Granulocytes 0 Not Estab. % [facility] - 01 Immature Grans (Abs) 0.0 0.0 - 0.1 x10E3/uL [facility] - 01 Blood 01/08/2025 12:1 5 PM CDT 01/08/2025 Narrative [facility] - 01/09/2025 6:09 AM CDT Performed at: - [facility] [id number] Landscape Supervisor: Marcos Crowe PhD, Phone: [phone] us Selin Ham MD LAB BLOOD ORDERABLES Fi nal Result [facility] - 01 * US Pelvis Complete (12/11/2024 2:00 PM [...] IMG US PROCEDURES Final Resu lt * Pap Only (Cytology Component) (09/25/2024 12:14 PM CDT) Thin prep (Pap test) 09/25/2024 12:14 PM CDT 09/25/2024 4:55 PM CDT Narrative PATHOLOGY [facility] - 10/01/2024 4:20 PM CDT EPIC results best viewed via link to PDF [facility] [place] [address] Note to Patients: This report may contain [...] Gender: F : 2000 (Age: 23) Address: [address] [place] [address] Hospital #: [id number] Service: FAUCET POLISHER Location: Patient Type: [facility] Ref Lab Serie Taken: 09/25/2024 Received: 09/25/2024 Accessioned: 09/26/2024 Reported: 10/01/2024 Physician(s): Berto Baker RN FINAL INTERPRETATION SOURCE OF SPECIMEN Liquid based Thin Prep pap: STATEMENT OF ADEQUACY - Satisfactory for evaluation - Endocervical cells/transformation zone sample absent GENERAL CATEGORIZATION: - Negative for squamous intraepithelial lesion or malignancy [facility]/10/01/2024 16:20 KAMINI Baxter MS(ASCP)ALEJANDRA Report Electronically Reviewed [...] clinical information and biopsy results as indicated. [facility] Clinical Laboratory Improvement Amendments (CLIA) mandate that cytologic and histologic results be correlated for laboratory quality assurance project manager & improvement standards. FOR ALL HIGH-GRADE [...] determined by the Surgical Pathology Department at [facility] as part of an ongoing quality control industrial engineer program and in compliance with federally mandated [...] determined by the Surgical Pathology Department of [facility]. It has not been cleared or approved by the U. S. Food and Drug Administration. Berto Baker NP LAB CYTOLOGY ORDERABLES Sarah olivera Result PATHOLOGY [facility] 3rd Floor [place], [place] [phone] from Last 3 Months or Most Recently Relevant to Health Maintenance [place] [address] [place] [address] [facility] Care Teams Parimutuel Clerk Relationship Specialty Start Date End Date [place], Aniya Alvarez NP [address] [place] [address] PCP - General Nurse Practitioner 09/27/21
--- OUTSIDE RECORDS SUMMARY | 2025-01-29 05:25 | XMS_ITS | Clinical Summary ---
Author Organization [facility] Address [address] [place] [address] Care Team Providers Care Signalman Name Role Phone Unavailable Primary Care Provider [...] (#1) 2024 Insurance [employer] [address] [place] [address]
--- OUTSIDE RECORDS SUMMARY | 2025-01-29 05:25 | XMS_ITS | Encounter Summary ---
Author Organization [facility] Address [address] [place] [address] Care Team Providers Care Single Pointed Operator Name Role Phone Aniya Wallace NP Primary Care Provider [phone] Encounter Details Date Type Department Care Team (Late Contact Info) Description 01/10/2025 Results Follow-Up [facility] Convenient Care at [place] [address] [place] [address] Radha Mathis NP [address] [place] [address] [address] [place] [address] Throat culture Throat Social History Tobacco Use Types Packs/Day Years [...] CDT Gender Identity Non-Binary 04/27/2022 7:54 AM JDE DEVELOPER Sexual Orientation Queer 09/06/2024 4: 48 PM CDT documented as of this encounter Plan of Treatment Upcoming Encounters Date Type Department Care Team (Late Contact Info) Description 02/28/2025 4:45 PM JDE DEVELOPER Hospital Encounter [facility] Operating Room [address] [place] [address] Macey Rivero MD [address] [phone] [place] [address] 02/28/2025 4:45 PM JDE DEVELOPER - 02/28/2025 6:18 PM JDE DEVELOPER Surgery [facility] Operating Room [address] [place] [address] Macey Rivero MD [address] [facility] [phone] [place] [address] EXAM UNDER ANESTHESIA Scheduled Procedures Name Priority Associated Diagnoses Date/Ti me EXAM UNDER ANESTHESIA Abnormal uterine bleeding (AUB) 02/28/2025 4:45 PM JDE DEVELOPER BIOPSY - ENDOMETRIUM Abnormal uterine bleeding (AUB) 02/28/2025 4:45 PM JDE DEVELOPER documented as of this encounter Visit Diagnoses Not on filedocumented in this encounter Care Teams Single Pointed Operator Relationship Specialty Start Date End Date Aniya Wallace NP [address] [place] [address] PCP - General Nurse Practitioner 09/27/21 documented as of this encounter
--- OUTSIDE RECORDS SUMMARY | 2025-01-29 05:25 | XMS_ITS | Clinical Summary ---
Author Organization [facility] Address [address] [place] [address] Phone Care Team Providers Care Ethernet Network Architect Name Role Phone Aniya Wallace MADDIE CARRERA Primary Care Provider [phone] Medications atomoxetine (Strattera) 60 MG Capsule Take [...] ntive type 10/30/2024 Unspecified neurodevelopmental disorder 08/16/19 25 Encounters Date Type Department Care Team Description 01/13/2025 4:00 PM ORE BUYER Telemedicine [facility] [address] [place] [address] Kimberly Armstrong LCPC PTSD (post-traumatic stress disorder) (Primary Dx) Discharge Disposition: Discharged to home or Selfcare 01/11/2025 Travel 12/24/2024 3:00 PM CDT Telemedicine [facility] [address] [place] [address] Kimberly Armstrong LCPC Major depressive disorder, single episode, moderate (Primary Dx) Discharge Disposition: Discharged to home or Selfcare 12/24/2024 Travel 12/10/2024 4:30 PM CDT Telemedicine [facility] [address] [place] [address] Kimberly Armstrong LCPC Major depressive disorder, single episode, moderate (HCC) (Primary Dx) Discharge Disposition: Discharged to home or Selfcare 12/08/2024 Travel 12/03/2024 3:00 PM CDT Telemedicine [facility] [address] [place] [address] Kimberly Armstrong LCPC Major depressive disorder, single episode, moderate (HCC) (Primary Dx) Discharge Disposition: Discharged to home or Selfcare 12/02/2024 Travel 12/01/2024 Travel 11/26/2024 3:00 PM CDT Telemedicine [facility] 1 [facility] [address] [place] [address] Kimberly Armstrong LCPC Major depressive disorder, single episode, moderate (HCC) (Primary Dx) Discharge Disposition: Discharged to home or Selfcare 11/24/2024 Travel 11/18/2024 Travel 11/12/2024 3:00 PM CDT Telemedicine [facility] [address] [place] [address] Kimberly Armstrong LCPC Autism spectrum disorder, without accompanying intellectual or language impairment, requiring support (level 1) (Primary Dx); PTSD (post-traumatic stress disorder) Discharge Disposition: Discharged to home or Selfcare 11/10/2024 Travel 10/30/2024 9:15 AM CDT Outpatient Clinic Visit [facility] [address] [place] [address] Kimberly Armstrong LCPC Obsessive compulsive disorder, with good or fair insight (Primary Dx); Major depressive disorder, single episode, moderate (HCC); Autism spectrum disorder, without accompanying intellectual or language impairment, requiring support (level 1); Attention deficit hyperactivity disorder, inattentive type; PTSD (post-traumatic stress disorder) Discharge Disposition: Discharged to home or Selfcare 10/29/2024 Travel from Last 3 Months Family History [...] Care Team (Late st Contact Info) Description 02/03/2025 4:45 PM ORE BUYER Outpatient Clinic Visit [facility] 1 [place] [address] Kimberly Armstrong, [facility] [address] [place] [address] 02/05/2025 4:00 PM ORE BUYER Telemedicine [facility] [place] [address] [facility] [address] [place] [address] Brenda Garcia APRN, PHARMACY SERVICE ASSOCIATE [address] [address] Health Maintenance Due Date Last Done Comments Hepatitis C Virus (HCV) Screening 2002 Human Papillomavirus (HPV) Immunization (1 - 3-dose series) 2017 Meningococcal B Immunization (1 of 2 - Standard) 2018 Hepatitis B Immunization (1 of 3 - 19+ 3-dose series) 2021 Pap Smear 11/20/2023 Influenza Immunization (#1) 2024 03/11/2024, 1 04/18/2022 SARS-COV-2 Immunization ( season) 2024 05/23/2024, 02/15/2023, 03/03/2021, Additional history exists Respiratory Syncytial Virus (RSV) Immunization (Adult) (1 - 1-dose 75+ series) 2077 TdaP Immunization Completed 05/23/2024 Meningococcal Immunization (ACWY) [...] Patient-Stated? Author Depression, Anxiety, and ADHD Depression Worsening( 4:52 PM ORE BUYER) Yes Kimberly Armstrong, [facility] Note: Work towards goals more consistently Need to know limits (ADHD gets in the way, along with fatigue) Goal/Objective: Improve organization. Anticipated Time Frame for Goal Completion: 6 months Goal Reviewed with: patient Readiness to change: Ready to change Department associated with goal: [facility] Steps to achieve [...] Insurance MEDICAID [employer] Care Teams Ethernet Network Architect Relationship Specialty Start Date End Date Aniya Wallace APRN, CNP PCP - General Family Medicine 08/15/24
[2025-01-29 12:47] VITALS: BP 95/58; PULSE 65; RESP 18; TEMP 36.6; O2SAT 100
[2025-01-29 12:52] LABS: BEDSIDEPREGUCG Negative (Negative)
[2025-01-29] MEDS: LACTATED RINGERS 1,000 ML 150 ML IV CONT (13:02)
--- NOTE | 2025-01-29 13:06 | WPDANESEPPF ---
Anes - Initial Pre Proc Eval Procedure: Operation Date: 01/29/25 13:30 Proposed Procedures p EGD & Diagnostic Colonoscopy - Jero Helton MD Date/Time: 01/29/25 13:06 Surgeon: Jero Helton MD Pre Op Diagnosis: Nausea, Epigastric pain. abd distension Patient Data Age: 24 Gender: F Height: 1.65 m Weight: 70.8 kg Last Vital Signs Temp 97.9 F 01/29/25 12:47 Pulse 65 01/29/25 12:47 Resp 18 01/29/25 12:47 BP 95/58 L 01/29/25 12:47 Pulse Ox 100 01/29/25 12:47 O2 Del Method Room Air 01/29/25 12:47 Allergies Allergy/AdvReac Type Severity Reaction Status Date / Time adhesive tape Allergy Severe rash Verified 01/29/25 12:46 cefdinir (From Omnicef) Allergy Rash Verified 01/29/25 12:46 clindamycin Allergy Anaphylactic Verified 01/29/25 12:46 Shock nickel Allergy Rash Verified 01/29/25 12:46 Home Medications ?Medication ?Instructions ?Recorded ?Confirmed ?Type albuterol sulfate 90 mcg/actuation 1 puff inhalation QID PRN 09/22/19 01/13/25 History aerosol inhaler bronchospasm hydroxyzine pamoate 25 mg capsule 25 mg PO TID PRN Anxiety 09/22/19 01/13/25 History levocetirizine 5 mg tablet (Xyzal) 5 mg PO DAILY 09/22/19 01/13/25 History omeprazole 20 mg tablet,delayed 20 mg PO BID 09/22/19 01/13/25 History release gabapentin 100 mg capsule 100 mg PO BID 12/04/24 01/13/25 History midodrine 2.5 mg tablet 2.5 mg PO DAILY 12/04/24 01/29/25 History ondansetron HCl 8 mg tablet 8 mg PO BID-TID 12/04/24 01/13/25 History dicyclomine 10 mg capsule 10 mg PO BID PRN abdominal pain 12/15/24 01/29/25 Rx #20 caps metoclopramide HCl 5 mg tablet 5 mg PO ACHS #120 tabs 12/20/24 01/29/25 Rx (Reglan) drospirenone (contraceptive) 4 mg 4 mg PO DAILY 01/13/25 01/13/25 History (28) tablet (Slynd) propranolol 120 mg capsule,24 120 mg PO Q24H 01/13/25 01/29/25 History hr,extended release sodium chloride 1,000 mg soluble 1,000 mg PO BID 01/13/25 01/13/25 History tablet Laboratory Tests 01/29/25 12:47 POC Urine HCG, Qual Negative (Negative) Patient hx anesthesia problems: none Family hx anesthesia problems: none Results Review: All pre-operative results and documents have been reviewed as part of the pre-operative evaluation. [facility] Past Medical History Medical History POTS (postural orthostatic tachycardia syndrome) History of fibromyalgia Social History Social History Smoking status: Never smoker Alcohol intake: never Substance use: current Substance use type: marijuana Other substance usage details: couple times a week Living arrangements: with family Spiritual care concerns: No Anes - Eval Final PreProcedure Day of Procedure 01/29/25 13:06 Patient weight: normal Lungs: normal air movement Airway: Mallampati scale class II Neurological: alert and oriented Last oral intake: >/= 8 hours ASA classification: II Emergent: no Anesthetic plan: proceed Anesthesia type and monitoring: general GIVS and standard monitoring Results Review: All pre-operative results and documents have been reviewed as part of the pre-operative evaluation. ADHD, POTS, ADHD, seizures (absence type), cannabis use daily. Pt can walk 1-2 fos, no cp or sob. Informed Consent: The patient's anesthetic plan and its attendant risks and benefits were discussed with the patient/family/POA. Questions were solicited and answers provided to the satisfaction of the patient/family/POA.
[2025-01-29] MEDS: SIMETHICONE ORAL SUSPENSION 20 MG/0.3 ML 30 ML BOTTLE 1.8 ML PO (13:20)
--- NOTE | 2025-01-29 13:36 | PM.IMHP ---
H&P: HPI History of Present Illness Date/Time: 01/29/25 13:36 Chief Complaint: Slow [id number] bleeding Narrative: Patient with suspected gastroparesis, referred for EGD for symptoms of postprandial discomfort, fullness, and gas sensation. In addition patient endorses intermittent rectal bleeding, some amounts, bright red. No tenesmus or urgency. She is also referred for a colonoscopy. Review of Systems Review of Systems: All systems reviewed & are unremarkable except as noted in HPI and below PMFSH Past Medical History Medical History POTS (postural orthostatic tachycardia syndrome) History of fibromyalgia Social History Social History Smoking status: Never smoker Alcohol intake: never Substance use: current Substance use type: marijuana Other substance usage details: couple times a week Living arrangements: with family Spiritual care concerns: No Meds Home Medications and Allergies Home Medications ?Medication ?Instructions ?Recorded ?Confirmed ?Type albuterol sulfate 90 mcg/actuation 1 puff inhalation QID PRN 09/22/19 01/13/25 History aerosol inhaler bronchospasm hydroxyzine pamoate 25 mg capsule 25 mg PO TID PRN Anxiety 09/22/19 01/13/25 History levocetirizine 5 mg tablet (Xyzal) 5 mg PO DAILY 09/22/19 01/13/25 History omeprazole 20 mg tablet,delayed 20 mg PO BID 09/22/19 01/13/25 History release gabapentin 100 mg capsule 100 mg PO BID 12/04/24 01/13/25 History midodrine 2.5 mg tablet 2.5 mg PO DAILY 12/04/24 01/29/25 History ondansetron HCl 8 mg tablet 8 mg PO BID-TID 12/04/24 01/13/25 History dicyclomine 10 mg capsule 10 mg PO BID PRN abdominal pain 12/15/24 01/29/25 Rx #20 caps metoclopramide HCl 5 mg tablet 5 mg PO ACHS #120 tabs 12/20/24 01/29/25 Rx (Reglan) drospirenone (contraceptive) 4 mg 4 mg PO DAILY 01/13/25 01/13/25 History (28) tablet (Slynd) propranolol 120 mg capsule,24 120 mg PO Q24H 01/13/25 01/29/25 History hr,extended release sodium chloride 1,000 mg soluble 1,000 mg PO BID 01/13/25 01/13/25 History tablet Allergies Allergy/AdvReac Type Severity Reaction Status Date / Time adhesive tape Allergy Severe rash Verified 01/29/25 12:46 cefdinir (From Omnicef) Allergy Rash Verified 01/29/25 12:46 clindamycin Allergy Anaphylactic Verified 01/29/25 12:46 Shock nickel Allergy Rash Verified 01/29/25 12:46 Vital Signs Vital Signs - 24 hr 01/29/25 12:47 Temperature 97.9 F Pulse Rate 65 Respiratory Rate 18 Blood Pressure 95/58 L Pulse Oximetry 100 Oxygen Delivery Room Air Exam Const: General: cooperative and healthy appearing Resp: Effort & Inspection: normal respiratory effort and able to speak in complete sentences Auscultation: clear to auscultation bilaterally Cardio: Rate: regular rate Rhythm: regular rhythm GI: Inspection: normal to inspection GI Palp: No No hepatosplenomegaly present Auscultation: normal bowel sounds Rectal Exam: deferred Skin: General skin exam: normal color Psych: Appearance: grossly normal Mental Status: mental status grossly normal Assessment and Plan Assessment and plan (1) Bright red rectal bleeding: Code(s): K62.5 - Hemorrhage of anus and rectum Status: Acute Assessment and Plan: The patient is deemed a good candidate for the procedures. Consent signed. Will proceed.
[2025-01-29] MEDS: BENZOCAINE (*SP) 60 ML SPRAY CAN (HURRICAINE) 1 SPRAY MUCOUS MEM (13:42)
--- NOTE | 2025-01-29 13:48 | S_PTH ---
PATIENT: Ellen Ferro LOC: [facility]#:[id number] AGE/SX: 24/F ROOM: RE01/29/[address]: Jero Helton MD : 2000 BED: DIS: 01/29/2025 SPEC #: [id number] RECD: 01/29/25 14:04 STATUS: BRISA DURAN #: [id number] CHUY: 01/29/25 13:[address]: Jero Helton DEPT: [facility] Surgical RECD BY: Lance Hinds ENTERED: 01/29/25 14:05 SP TYPE: Surgical OTHR DR: Aniya Wallace, [employer] Tissues: A - Gastric Biopsy B - Gastric Biopsy C - Duodenal Biopsy D - Colon Biopsy E - Colon Biopsy F - Small Bowel Bx Procedures: Hematoxylin and Eosin Stain Gross and Microscopic Level 4
--- NOTE | 2025-01-29 13:53 | SUR.OPER ---
EGD END TIME 1347 COLONOSCOPY START TIME 135
[2025-01-29 14:04] VITALS: BP 95/60; PULSE 81; RESP 21; O2SAT 99
[2025-01-29 14:14] VITALS: BP 105/58; PULSE 62; RESP 27; O2SAT 100
[2025-01-29 14:24] VITALS: BP 104/51; PULSE 73; RESP 20; O2SAT 100
== END 2025-01-29 14:33 | disposition home or self-care (01) ==
PROVIDERS: Anesthesiology; PCP Nurse Practitioner Family; Referring Provider Nurse Practitioner; Visit Provider Internal Medicine Gastroenterology
PROC: 0DJ08ZZ Inspection of Upper Intestinal Tract, Via Natural or Artificial Opening Endoscopic (ICD-10-PCS; CPT 45378; principal; 2025-01-29 13:30)
DX: K64.8 Other hemorrhoids (principal); K29.70 Gastritis, unspecified, without bleeding; G90.A Postural orthostatic tachycardia syndrome [POTS]; M79.7 Fibromyalgia; F90.9 Attention-deficit hyperactivity disorder, unspecified type; G40.A09 Absence epileptic syndrome, not intractable, without status epilepticus; F12.90 Cannabis use, unspecified, uncomplicated; Z79.51 Long term (current) use of inhaled steroids
CPT/HCPCS: 43239; 45380; 88305; J2003; J2704; J7120